=== PATIENT | female | born 1990 | race Caucasian/White ===

== ENCOUNTER 2019-07-21 07:36 | Inpatient (IN) ==
[2019-07-21] MEDS ORDERED: OXYTOCIN 30 UNITS/500 ML BAG IV PRN ×2 (07:56→07:59)
--- NOTE | 2019-07-21 08:21 | History & Physical Report ---
Date of Service July 21, 2019 Assessment & Plan (1) Encounter for induction of labor: 28 yo F here for induction of labor for post dates. Doing well today and without complaints. Had chirinos bulb overnight. - Broke water at ~8:50AM. - Pitocin up by 2 q30 minutes and will monitor for progress. - Pt's pain management plan includes epidural. (2) : History of Present Illness Primary Care Provider: NO PCP Duong is a 28 yo F PMHx anxiety on Celexa; dating parameters 41w0d by LMP; Induction planned today for post dates; no complications this . Attended OB appointments with [facility], admitted today under care of Dr. Moore. + intermittent contractions, + movement; no fluid loss or vaginal blood loss. Reports 5AM chirinos bulb fell out. Pain plan includes epidural. Labs (12/02/18, pending CBC this AM): Blood type: A+ Antibody screen: negative Hgb: 12.1 Hct: 35.3 WBC: 4.86 Plt: 186 Rubella status: immune VDLR/RPR: not detected Gonorrhea: negative Chlamydia: negative HIV: negative GBS: negative HbSAg: negative Glucose tolerance test x2: 90, 132 Allergies Allergy/AdvReac Type Severity Reaction Status Date / Time No Known Drug Allergies Allergy Verified 07/19/19 13:49 Home Medications Home Medications Medication Instructions Recorded Confirmed Type citalopram 20 mg tablet 20 mg PO DAILY tab 05/14/19 07/21/19 History PNV cmb#95-ferrous fumarate-FA 1 tab PO DAILY 07/20/19 07/21/19 History [] cholecalciferol (vitamin D3) 1,000 unit PO DAILY 07/20/19 07/21/19 History [Vitamin D3] Patient History Medical History Anxiety Currently taking Celexa. Managed by Dr. Renae Heart murmur "Was told once by a physician that she has a heart murmur." Migraines [place] teeth extracted Acne Surgical History History of oral surgery Family History Father Blood clot in vein Hypertension Polycythemia Dyslipidemia Motor vehicle accident Clotting disorder Drinking problem Grandmother (Paternal) Breast cancer Mother Thyroid disease Anemia Anxiety Family/Other Breast cancer Unknown Multiple gestation Other Colorectal cancer Social History Preferred Language: Jamaican Communication Ability: Effective Sales And Service Technician Required: No Beliefs That Will Affect Care: None marital status: Current Living Situation: Spouse current occupational status: employed current occupation: Dental hygienist Other Information That Helps Us Care for You: No Feels Safe at Home: Yes Safety Concerns: Feels Safe At This Time Smoking Status: Never smoker Do You Dip or Chew Tobacco: No ; Hx Alcohol Use: No Hx Substance Use: No OB History #1: current Review of Systems Constitutional: denies fever, chills, sweats, headache Respiratory: denies SOB, difficulty breathing Cardiac: denies CP, chest palpitations, chest pressure Breast: denies breast pain : denies dysuria Physical Exam Physical Exam: General: patient is alert and oriented, in NAD Cardiac: +S1/S2, no murmurs rubs or gallops Respiratory: lungs CTA b/l, anteriorly and posteriorly, no wheezes rales or rhonchi, no increased work of breathing, symmetric chest rise, no respiratory distress Abdomen: soft, NT, +bowel sounds Uterus: uterine fundus firm. Lower Extremities: no LE edema or swelling, no deep calf pain, Nayely's sign negative b/l Genitourinary: Manual OB Exam: + cervical dilation (3-4cm), + cervical effacement 50% and + station -2 OB Exam Monitor Tracing: + external FHT mon itor used, + external uterine monitor used, + category I and + normal FHT variability Results & Data Vital Signs (Past 12 Hours) Vital Signs Temp Pulse Resp BP 07/21/19 07:59 37.3 C 108 H 16 131/79 07/21/19 07:51 108 H 131/79 Laboratory Results Laboratory Results - last 24 hr 07/21/19 08:16 WBC Pending RBC Pending Hgb Pending Hct Pending MCV Pending MCH Pending MCHC Pending Plt Count Pending Medications Administered Current Medications Lactated Ringer's (Lr) 1,000 mls @ 125 mls/hr IV .Q8H PRN; Protocol PRN Reason: L&D Protocol Stop: 07/23/19 07:55 Oxytocin (Pitocin) 30 units in 500 mls @ 333.333 mls/hr IV .Q1H30M PRN; Protocol PRN Reason: Bleeding Control Stop: 08/20/19 07:55 Oxytocin (Pitocin) 30 units in 500 mls @ 1 mls/hr IV .Q24H PRN; Protocol PRN Reason: Labor Induction/Augmentation Stop: 07/23/19 07:58 Code Status & VTE Plan Code Status FULL CODE Monitoring External Monitor category I tracing and + normal FHT variability Supervising Physician Co-Signing Physician Notes Resident Physician Supervision Note: I was present with Dr. Hooper during the history and exam. I discussed the case with the resident and agree with the findings and plan as documented in the note. Any exceptions or clarifications are listed here: ready for induction, arom/pit, efw 7-8#, fhts categ 1, epidural when desires. on celexa. rh pos, gbs neg, rubella immune. Documented By: Christa Moore MD, FACOG Resident Activity Tracking Resident Involvement: Resident Care Provided Care Provided: [facility] Medicine (1) Weeks of gestation: 40 weeks Qualified Code(s): Z3A.40 - 40 weeks gestation of
[2019-07-21] MEDS: LACTATED RINGER'S 1,000 ML IV PRN ×4 (08:31→20:15)
[2019-07-21 09:05] LABS: Hematocrit (blood only) 38.1 % (37-47); Hemoglobin 12.9 g/dL (12.0-16.0); Mean Corpuscular Hemoglobin 32.5 pg (25-34); RDW Coefficient of Variation 13.2 % (11.5-14.5); RDW Standard Deviation 45.9 fL (36.4-46.3); Red Blood Count 3.97 M/uL (4.2-5.4); White Blood Count 10.71 K/uL (4.8-10.8)
[2019-07-21 09:06] LABS: Mean Corpuscular Hgb Conc 33.9 g/dL (32-36); Mean Platelet Volume 13.1 fL (7.4-10.4); Platelet Count 134 K/uL (130-400); Platelet Estimate Decreased (Normal)
[2019-07-21] MEDS ORDERED: BUPIVACAINE 0.25% 30 ML VIAL ONE ×2 (09:55→19:01)
[2019-07-21] MEDS ORDERED: ePHEDrine sulfate 50 MG/ML AMP ONE (09:56)
[2019-07-21] MEDS ORDERED: fentaNYL citrate 100 MCG/2 ML VIAL ONE (09:56)
[2019-07-21] MEDS ORDERED: fentaNYL 2MCG/ML ROPIV 1.25MG/ML 100 ML BAG EPI ONE (09:57)
[2019-07-21] MEDS ORDERED: NALBUPHINE HCL INJ 10 MG/ML AMP IV PRN (10:09)
[2019-07-21] MEDS ORDERED: ePHEDrine sulfate 50 MG/ML AMP IV PRN (10:09)
[2019-07-21] MEDS ORDERED: DiphenhydrAMINE HCL 50 MG/ML VIAL IV PRN (10:09)
[2019-07-21] MEDS ORDERED: NALOXONE HCL 1 MG in SODIUM CHLORIDE 0.9% 1000ML 1,000 ML IV PRN (10:09)
[2019-07-21] MEDS ORDERED: NALOXONE HCL 0.4 MG/1 ML VIAL/CARP IV PRN (10:09)
--- NOTE | 2019-07-21 10:12 | Anesthesiology Consultation ---
Date of Service July 21, 2019 Assessment & Plan (1) Encounter for pre-operative examination: Chart Review Chart Review: Patient NOT seen in Pre Admission Testing and Acceptable Risk for Labor Epidural Consults Requested none History Height/Weight Height: 5 ft 4 in Weight: 84.368 kg Allergies Allergy/AdvReac Type Severity Reaction Status Date / Time No Known Drug Allergies Allergy Verified 07/19/19 13:49 Medications Home Medications Medication Instructions Recorded Confirmed Last Taken citalopram 20 mg tablet 20 mg PO DAILY tab 05/14/19 07/20/19 07/19/19 13:00 PNV cmb#95-ferrous fumarate-FA 1 tab PO DAILY 07/20/19 07/20/19 07/19/19 13:00 [] cholecalciferol (vitamin D3) 1,000 unit PO DAILY 07/20/19 07/20/19 07/19/19 13:00 [Vitamin D3] Active Medications Generic Name Dose Route Start Last Admin Trade Name Freq PRN Reason Stop Dose Admin Lactated Ringer's 1,000 mls @ 125 mls/hr 07/21/19 07:56 07/21/19 08:31 Lr IV 07/23/19 07:55 125 mls/hr .Q8H PRN Administration L&D Protocol Protocol Oxytocin 30 units in 500 mls @ 5 mls/hr 07/21/19 07:59 07/21/19 09:35 Pitocin IV 07/23/19 07:58 0.3 units/hr .Q24H PRN 5 mls/hr Labor Induction/Augmentation Titration Protocol 0.3 UNITS/HR Past Medical History Medical History Anxiety Currently taking Celexa. Managed by Dr. Renae Heart murmur "Was told once by a physician that she has a heart murmur." Migraines [place] teeth extracted Acne Exercise / Class Metabolic Activity II 4-5 Yardwork/Stairs/Walk up hill Past Family History Family History Father Blood clot in vein Hypertension Polycythemia Dyslipidemia Motor vehicle accident Clotting disorder Drinking problem Grandmother (Paternal) Breast cancer Mother Thyroid disease Anemia Anxiety Family/Other Breast cancer Unknown Multiple gestation Other Colorectal cancer Past Surgical History Surgical History History of oral surgery Past Anesthesia History No Hx of Anesthesia Complications and No Family Hx of Anesthesia Complications History of PONV No Hx of PONV and No Hx of Motion Sickness Social History Smoking Status: Never smoker Do You Dip or Chew Tobacco: No Hx Alcohol Use: No Hx Substance Use: No Physical Exam Vital Signs Last Vital Signs Temp 37.2 C 07/21/19 09:19 Pulse 115 H 07/21/19 10:08 Resp 18 07/21/19 09:19 BP 138/87 07/21/19 10:07 Pulse Ox 97 07/21/19 10:08 Testing Laboratory Results 07/21/19 08:16
[2019-07-21] MEDS ORDERED: INFLUENZA VIRUS QUAD VACCINE 0.5 ML SYR IM ONE (12:45)
[2019-07-21] MEDS ORDERED: INFLUENZA ADMINISTRATION CHARGE ONE (12:45)
--- NOTE | 2019-07-21 14:56 | Labor Progress Brief Note ---
Date of Service July 21, 2019 Subjective Reason For Note: Routine Evaluation called by nurse that with pit at 13 thinks pt has had 2 hrs of 3 per 10min ctx. pt comfortable. TOCO has been difficult to use for nurse. Assessment & Plan (1) Encounter for induction of labor: (2) Prolonged , antepartum: some cx change. iupc placed due to nursing having trouble with evaluation of pattern with toco. will keep mvu's >200. fhts categ 1 Physical Exam Constitutional: WD/WN, vitals as above Genitourinary: OB Exam Abdomen: + estimated weight (7-8#) Manual OB Exam: + cervical dilation (3-4cm), + cervical effacement 80% and + station -2 OB Exam Monitor Tracing: + external FHT monitor used (135 mod variabilty, reactive), + external uterine monitor used (q1-3 pit at 13), + category I and + normal FHT variability Results & Data Vital Signs (Past 12 Hours) Vital Signs Temp Pulse Resp BP Pulse Ox 07/21/19 14:48 77 96 07/21/19 14:43 84 97 07/21/19 14:39 82 116/60 07/21/19 14:38 87 97 07/21/19 14:33 82 96 07/21/19 14:28 79 97 07/21/19 14:23 84 109/66 97 07/21/19 14:18 84 97 07/21/19 14:13 79 97 07/21/19 14:08 76 105/63 96 07/21/19 14:03 77 97 07/21/19 14:01 99.0 F 20 07/21/19 13:58 82 97 07/21/19 13:53 80 116/59 L 96 07/21/19 13:48 74 97 07/21/19 13:43 79 97 07/21/19 13:38 80 123/57 L 95 07/21/19 13:33 83 95 07/21/19 13:28 89 97 07/21/19 13:25 87 120/77 07/21/19 13:23 98 H 97 07/21/19 13:18 90 97 07/21/19 13:13 86 96 07/21/19 13:08 80 118/72 96 07/21/19 13:03 92 H 97 07/21/19 12:58 86 97 07/21/19 12:53 83 125/74 98 07/21/19 12:48 88 98 07/21/19 12:43 82 96 07/21/19 12:40 83 20 115/65 07/21/19 12:38 82 97 07/21/19 12:33 85 97 07/21/19 12:28 90 97 07/21/19 12:24 89 93/54 L 07/21/19 12:23 88 97 07/21/19 12:18 88 97 07/21/19 12:13 91 H 95 07/21/19 12:08 82 113/59 L 95 07/21/19 12:03 90 96 07/21/19 12:00 98.2 F 18 07/21/19 11:58 81 98 07/21/19 11:54 82 129/74 07/21/19 11:53 85 97 07/21/19 11:48 94 H 97 07/21/19 11:43 90 96 07/21/19 11:38 105 H 20 113/70 97 07/21/19 11:33 100 H 96 07/21/19 11:28 88 96 07/21/19 11:23 99 H 112/63 98 07/21/19 11:18 86 96 07/21/19 11:15 114 H 18 129/60 07/21/19 11:13 108 H 98 07/21/19 11:10 121 H 98/61 L 07/21/19 11:08 102 H 98 07/21/19 11:05 96 H 103/72 07/21/19 11:03 96 H 94 07/21/19 10:58 109 H 93 07/21/19 10:56 87 20 109/68 07/21/19 10:53 112 H 93 07/21/19 10:49 99 H 117/64 07/21/19 10:48 101 H 90 07/21/19 10:47 102 H 107/58 L 07/21/19 10:45 118 H 20 146/60 H 07/21/19 10:43 96 H 93 07/21/19 10:42 93 H 107/60 07/21/19 10:40 98.2 F 105 H 22 115/63 07/21/19 10:38 88 118/64 94 07/21/19 10:36 96 H 22 110/64 07/21/19 10:34 95 H 20 109/60 07/21/19 10:33 101 H 94 07/21/19 10:32 92 H 20 113/61 07/21/19 10:30 95 H 120/58 L 07/21/19 10:29 96 H 171/78 H 07/21/19 10:28 95 H 93 07/21/19 10:25 102 H 20 131/78 94 07/21/19 10:23 98 H 95 07/21/19 10:18 110 H 96 07/21/19 10:13 95 H 96 07/21/19 10:08 115 H 97 07/21/19 10:07 102 H 20 138/87 07/21/19 09:19 99.0 F 88 18 135/83 07/21/19 08:46 90 130/81 07/21/19 07:59 99.1 F 108 H 16 131/79 07/21/19 07:51 108 H 131/79
[2019-07-21] MEDS: fentaNYL 2MCG/ML ROPIV 1.25MG/ML 100 ML BAG EPI PRN ×2 (16:20→20:51)
--- NOTE | 2019-07-21 17:52 | Labor Progress Brief Note ---
Date of Service July 21, 2019 Subjective Reason For Note: Routine Evaluation comfortable, pit at 19, mvus not consistently >200. Assessment & Plan (1) Prolonged , antepartum: (2) Encounter for induction of labor: good cx change. c/w pit. max increased, titrate to keep mvu's >200. will try position change and can consider amnioinfusion if variables persist remote from delivery Physical Exam Constitutional: WD/WN, vitals as above Genitourinary: Manual OB Exam: + cervical dilation 5 cm, + cervical effacement 90% and + station -2 OB Exam Monitor Tracing: + external FHT monitor used (135 mod variabilty +scalp stim ), + category II, + normal FHT variability and + variable decelerations (occas) Results & Data Vital Signs (Past 12 Hours) Vital Signs Temp Pulse Resp BP Pulse Ox 07/21/19 17:43 101 H 97 07/21/19 17:38 91 H 131/81 97 07/21/19 17:33 93 H 98 07/21/19 17:28 112 H 97 07/21/19 17:23 102 H 111/62 97 07/21/19 17:18 95 H 97 07/21/19 17:13 96 H 96 07/21/19 17:09 100 H 117/64 07/21/19 17:08 90 97 07/21/19 17:03 87 97 07/21/19 17:00 98.2 F 20 07/21/19 16:58 100 H 96 07/21/19 16:53 98 H 105/56 L 95 07/21/19 16:48 96 H 97 07/21/19 16:43 106 H 97 07/21/19 16:39 98 H 125/79 07/21/19 16:38 92 H 97 07/21/19 16:33 104 H 18 97 07/21/19 16:28 91 H 97 07/21/19 16:24 91 H 143/68 H 07/21/19 16:23 94 H 96 07/21/19 16:18 92 H 96 07/21/19 16:13 96 H 97 07/21/19 16:08 94 H 115/73 96 07/21/19 16:03 92 H 96 07/21/19 16:01 92 H 20 128/67 07/21/19 15:58 97 H 95 07/21/19 15:53 90 96 07/21/19 15:48 89 97 07/21/19 15:43 96 H 97 07/21/19 15:38 80 114/68 97 07/21/19 15:33 78 98 07/21/19 15:28 92 H 97 07/21/19 15:23 95 H 20 109/57 L 96 07/21/19 15:18 85 98 07/21/19 15:13 76 96 07/21/19 15:08 98.2 F 81 20 111/59 L 96 07/21/19 15:03 96 H 95 07/21/19 14:58 92 H 96 07/21/19 14:54 77 111/57 L 07/21/19 14:53 86 95 07/21/19 14:48 77 96 07/21/19 14:43 84 97 07/21/19 14:39 82 116/60 07/21/19 14:38 87 97 07/21/19 14:33 82 20 96 07/21/19 14:28 79 97 07/21/19 14:23 84 109/66 97 07/21/19 14:18 84 97 07/21/19 14:13 79 97 07/21/19 14:08 76 105/63 96 07/21/19 14:03 77 97 07/21/19 14:01 99.0 F 20 07/21/19 13:58 82 97 07/21/19 13:53 80 116/59 L 96 07/21/19 13:48 74 97 07/21/19 13:43 79 97 07/21/19 13:38 80 123/57 L 95 07/21/19 13:33 83 95 07/21/19 13:28 89 97 07/21/19 13:25 87 120/77 07/21/19 13:23 98 H 97 07/21/19 13:18 90 97 07/21/19 13:15 20 07/21/19 13:13 86 96 07/21/19 13:08 80 118/72 96 07/21/19 13:03 92 H 97 07/21/19 12:58 86 97 07/21/19 12:53 83 125/74 98 07/21/19 12:48 88 98 07/21/19 12:43 82 96 07/21/19 12:40 83 20 115/65 07/21/19 12:38 82 97 07/21/19 12:33 85 97 07/21/19 12:28 90 97 07/21/19 12:24 89 93/54 L 07/21/19 12:23 88 97 07/21/19 12:18 88 97 07/21/19 12:13 91 H 95 07/21/19 12:08 82 113/59 L 95 07/21/19 12:03 90 96 07/21/19 12:00 98.2 F 18 07/21/19 11:58 81 98 07/21/19 11:54 82 129/74 07/21/19 11:53 85 97 07/21/19 11:48 94 H 97 07/21/19 11:43 90 96 07/21/19 11:38 105 H 20 113/70 97 07/21/19 11:33 100 H 96 07/21/19 11:28 88 96 07/21/19 11:23 99 H 112/63 98 07/21/19 11:18 86 96 07/21/19 11:15 114 H 18 129/60 07/21/19 11:13 108 H 98 07/21/19 11:10 121 H 98/61 L 07/21/19 11:08 102 H 98 07/21/19 11:05 96 H 103/72 07/21/19 11:03 96 H 94 07/21/19 10:58 109 H 93 07/21/19 10:56 87 20 109/68 07/21/19 10:53 112 H 93 07/21/19 10:49 99 H 117/64 07/21/19 10:48 101 H 90 07/21/19 10:47 102 H 107/58 L 07/21/19 10:45 118 H 20 146/60 H 07/21/19 10:43 96 H 93 07/21/19 10:42 93 H 107/60 07/21/19 10:40 98.2 F 105 H 22 115/63 07/21/19 10:38 88 118/64 94 07/21/19 10:36 96 H 22 110/64 07/21/19 10:34 95 H 20 109/60 07/21/19 10:33 101 H 94 07/21/19 10:32 92 H 20 113/61 10/02/19 10:30 95 H 120/58 L 07/21/19 10:29 96 H 171/78 H 07/21/19 10:28 95 H 93 07/21/19 10:25 102 H 20 131/78 94 07/21/19 10:23 98 H 95 07/21/19 10:18 110 H 96 07/21/19 10:13 95 H 96 07/21/19 10:08 115 H 97 07/21/19 10:07 102 H 20 138/87 07/21/19 09:19 99.0 F 88 18 135/83 07/21/19 08:46 90 130/81 07/21/19 07:59 99.1 F 108 H 16 131/79 07/21/19 07:51 108 H 131/79
[2019-07-21] MEDS ORDERED: Nursing to Pharmacy Communication ONE (18:22)
[2019-07-21] MEDS ORDERED: OR MISCELLANEOUS MED XX ONE (19:57)
[2019-07-22] MEDS: fentaNYL 2MCG/ML ROPIV 1.25MG/ML 100 ML BAG EPI PRN ×2 (01:29→09:16)
--- NOTE | 2019-07-22 02:41 | Labor Progress Brief Note ---
Date of Service July 22, 2019 Subjective Late entry due to attending to another patient, seen at 153am feeling pain with ctx. Assessment & Plan (1) Prolonged , antepartum: (2) Encounter for induction of labor: good cx change. will have anesthesia help pt with pain control. hold amnioinfusion for now. Physical Exam Constitutional: WD/WN, vitals as above Genitourinary: Manual OB Exam: + cervical dilation 9 cm, + cervical effacement 100%, + station 0 and + amniotic fluid (fluid c/w amnioinfusion released with exam, amnioinfusion stopped for now) clear OB Exam Monitor Tracing: + external FHT monitor used (150 mod variability, spont accels), + intra-uterine pressure catheter used (q2-3), + category I and + normal FHT variability Results & Data Vital Signs (Past 12 Hours) Vital Signs Temp Pulse Resp BP Pulse Ox 07/22/19 02:33 127 H 98 07/22/19 02:31 133 H 95/51 L 07/22/19 02:28 124 H 97 07/22/19 02:23 128 H 98 07/22/19 02:22 103 H 123/59 L 07/22/19 02:20 78 113/69 07/22/19 02:18 112 H 126/74 97 07/22/19 02:16 98 H 117/61 07/22/19 02:14 103 H 124/57 L 07/22/19 02:13 107 H 97 07/22/19 02:12 96 H 125/59 L 07/22/19 02:10 99 H 18 121/57 L 07/22/19 02:08 102 H 123/66 97 07/22/19 02:06 96 H 124/61 07/22/19 02:04 102 H 135/60 07/22/19 02:03 99 H 98 07/22/19 01:58 110 H 131/74 96 07/22/19 01:53 103 H 96 07/22/19 01:48 111 H 96 07/22/19 01:44 105 H 136/60 07/22/19 01:43 105 H 95 07/22/19 01:38 102 H 98 07/22/19 01:33 112 H 98 07/22/19 01:29 106 H 116/58 L 07/22/19 01:28 103 H 96 07/22/19 01:23 123 H 98 07/22/19 01:18 101 H 95 07/22/19 01:14 120 H 114/59 L 07/22/19 01:13 104 H 97 07/22/19 01:08 99 H 96 07/22/19 01:03 105 H 96 07/22/19 00:58 104 H 97 07/22/19 00:57 99.3 F 103 H 18 121/67 07/22/19 00:53 103 H 97 07/22/19 00:48 103 H 98 07/22/19 00:44 101 H 117/58 L 07/22/19 00:43 104 H 97 07/22/19 00:38 109 H 98 07/22/19 00:33 102 H 100 07/22/19 00:28 103 H 97 07/22/19 00:27 89 117/68 07/22/19 00:23 102 H 98 07/22/19 00:18 96 H 100 07/22/19 00:15 100 H 122/70 07/22/19 00:13 98 H 99 07/22/19 00:08 98 H 98 07/22/19 00:03 99 H 98 07/21/19 23:58 91 H 127/65 98 07/21/19 23:53 96 H 99 07/21/19 23:48 94 H 99 07/21/19 23:43 97 H 119/72 99 07/21/19 23:38 95 H 98 07/21/19 23:33 88 99 07/21/19 23:30 112 H 106/71 07/21/19 23:28 99 H 100 07/21/19 23:27 18 07/21/19 23:23 91 H 99 07/21/19 23:18 90 98 07/21/19 23:13 88 99 07/21/19 23:08 99 H 99 07/21/19 23:06 93 H 109/59 L 07/21/19 23:03 87 99 07/21/19 23:01 87 106/55 L 07/21/19 22:58 91 H 99 07/21/19 22:56 90 113/56 L 07/21/19 22:53 87 99 07/21/19 22:51 99.3 F 90 18 113/59 L 07/21/19 22:48 86 99 07/21/19 22:47 85 112/59 L 07/21/19 22:43 108 H 99 07/21/19 22:41 98 H 101/55 L 07/21/19 22:40 105 H 93/53 L 07/21/19 22:38 97 H 99 07/21/19 22:37 100 H 109/55 L 07/21/19 22:35 88 125/61 07/21/19 22:33 109 H 126/81 98 07/21/19 22:29 87 151/67 H 07/21/19 22:28 91 H 98 07/21/19 22:27 88 131/60 07/21/19 22:25 83 127/68 07/21/19 22:23 83 125/66 98 07/21/19 22:21 86 128/63 07/21/19 22:18 106 H 100 07/21/19 22:16 86 123/63 07/21/19 22:13 92 H 100 07/21/19 22:08 98 H 96 07/21/19 22:03 93 H 98 07/21/19 22:02 85 120/62 07/21/19 21:59 18 07/21/19 21:58 97 H 97 07/21/19 21:53 105 H 97 07/21/19 21:48 107 H 98 07/21/19 21:46 90 118/69 07/21/19 21:43 94 H 97 07/21/19 21:38 95 H 97 07/21/19 21:33 103 H 98 07/21/19 21:31 97 H 118/70 07/21/19 21:30 16 07/21/19 21:28 100 H 98 07/21/19 21:23 108 H 100 07/21/19 21:18 97 H 98 07/21/19 21:16 95 H 118/79 07/21/19 21:13 97 H 98 07/21/19 21:08 91 H 98 07/21/19 21:03 101 H 130/64 98 07/21/19 21:02 107 H 88 L 07/21/19 20:58 96 H 97 07/21/19 20:53 101 H 97 07/21/19 20:50 99.5 F 18 07/21/19 20:48 95 H 120/74 98 07/21/19 20:43 99 H 98 07/21/19 20:38 106 H 97 07/21/19 20:33 100 H 96 07/21/19 20:32 105 H 117/78 07/21/19 20:28 105 H 97 07/21/19 20:23 99 H 98 07/21/19 20:18 105 H 97 07/21/19 20:13 114 H 97 07/21/19 20:11 110 H 126/70 07/21/19 20:08 109 H 96 07/21/19 20:07 110 H 124/82 07/21/19 20:03 109 H 97 07/21/19 20:01 108 H 121/74 07/21/19 19:58 103 H 97 07/21/19 19:57 110 H 125/73 07/21/19 19:53 105 H 95 07/21/19 19:52 97 H 116/66 07/21/19 19:48 87 97 07/21/19 19:46 88 130/57 L 07/21/19 19:43 89 97 07/21/19 19:41 86 107/58 L 07/21/19 19:38 81 97 07/21/19 19:36 93 H 98/55 L 07/21/19 19:33 85 96 07/21/19 19:30 90 18 106/62 07/21/19 19:28 88 104/60 97 07/21/19 19:26 80 103/58 L 07/21/19 19:23 89 96 07/21/19 19:18 86 96 07/21/19 19:13 98.1 F 90 18 97 07/21/19 19:08 96 H 130/71 97 07/21/19 19:03 90 98 07/21/19 18:58 101 H 96 07/21/19 18:54 85 126/64 07/21/19 18:53 87 97 07/21/19 18:48 88 97 07/21/19 18:43 86 97 07/21/19 18:38 91 H 111/66 97 07/21/19 18:33 91 H 97 07/21/19 18:28 88 97 07/21/19 18:23 88 114/67 96 07/21/19 18:18 79 97 07/21/19 18:13 86 97 07/21/19 18:09 85 111/59 L 07/21/19 18:08 87 97 07/21/19 18:03 89 97 07/21/19 17:58 88 96 07/21/19 17:54 91 H 112/72 07/21/19 17:53 91 H 96 07/21/19 17:48 85 97 07/21/19 17:43 101 H 97 07/21/19 17:38 91 H 131/81 97 07/21/19 17:33 93 H 98 07/21/19 17:28 112 H 97 07/21/19 17:23 102 H 111/62 97 07/21/19 17:18 95 H 97 07/21/19 17:13 96 H 96 07/21/19 17:09 100 H 117/64 07/21/19 17:08 90 97 07/21/19 17:03 87 97 07/21/19 17:00 98.2 F 20 07/21/19 16:58 100 H 96 07/21/19 16:53 98 H 105/56 L 95 07/21/19 16:48 96 H 97 07/21/19 16:43 106 H 97 07/21/19 16:39 98 H 125/79 07/21/19 16:38 92 H 97 07/21/19 16:33 104 H 18 97 07/21/19 16:28 91 H 97 07/21/19 16:24 91 H 143/68 H 07/21/19 16:23 94 H 96 07/21/19 16:18 92 H 96 07/21/19 16:13 96 H 97 07/21/19 16:08 94 H 115/73 96 07/21/19 16:03 92 H 96 07/21/19 16:01 92 H 20 128/67 07/21/19 15:58 97 H 95 07/21/19 15:53 90 96 07/21/19 15:48 89 97 07/21/19 15:43 96 H 97 07/21/19 15:38 80 114/68 97 07/21/19 15:33 78 98 07/21/19 15:28 92 H 97 07/21/19 15:23 95 H 20 109/57 L 96 07/21/19 15:18 85 98 07/21/19 15:13 76 96 07/21/19 15:08 98.2 F 81 20 111/59 L 96 07/21/19 15:03 96 H 95 07/21/19 14:58 92 H 96 07/21/19 14:54 77 111/57 L 07/21/19 14:53 86 95 07/21/19 14:48 77 96 07/21/19 14:43 84 97 07/21/19 14:39 82 116/60 07/21/19 14:38 87 97
[2019-07-22] MEDS: LACTATED RINGER'S 1,000 ML IV PRN ×2 (03:34→06:22)
[2019-07-22] MEDS ORDERED: ACETAMINOPHEN 325 MG TAB PO STA (03:39)
[2019-07-22] MEDS ORDERED: GENTAMICIN SULFATE 40 MG/ML 20 ML VIAL IV STA (03:39)
[2019-07-22] MEDS ORDERED: GENTAMICIN CONSULT ACTIVE PRN ×3 (03:39→15:29)
[2019-07-22] MEDS ORDERED: AMPICILLIN 2,000 MG in SODIUM CHLOR 0.9% AD-VAN 100 ML IV ONE (04:00)
[2019-07-22] MEDS ORDERED: GENTAMICIN SULFATE 120 MG in DEXTROSE 5% 100 ML IV ONE ×2 (04:00→12:00)
--- NOTE | 2019-07-22 05:14 | Labor Progress Brief Note ---
Date of Service July 22, 2019 Subjective having lower pubic pain Assessment & Plan (1) Prolonged , antepartum: (2) Encounter for induction of labor: cannot reduce lip. fhts reassuring overall. will need to try to get comfortable as needs to dilate. Physical Exam Constitutional: WD/WN, vitals as above Genitourinary: Manual OB Exam: + cervical dilation (lip), + cervical effacement 100% and + station + 1 OB Exam Monitor Tracing: + external FHT monitor used (150 mod variability, early decels), + intra-uterine pressure catheter used (q 2 min, but mvu's not well calculated due to pushed out), + category II, + normal FHT variability and + variable decelerations attempted to reduce lip x 2, efforts good but did not reduce. Results & Data Vital Signs (Past 12 Hours) Vital Signs Temp Pulse Resp BP Pulse Ox 07/22/19 05:09 96 H 88 L 07/22/19 05:04 107 H 86 L 07/22/19 05:03 107 H 89 L 07/22/19 04:58 106 H 100 07/22/19 04:54 96 H 131/61 07/22/19 04:53 97 H 97 07/22/19 04:52 101 H 87 L 07/22/19 04:48 106 H 97 07/22/19 04:43 125 H 76 L 07/22/19 04:39 99 H 153/81 H 07/22/19 04:38 100 H 98 07/22/19 04:33 105 H 96 07/22/19 04:31 99.1 F 18 07/22/19 04:28 107 H 96 07/22/19 04:23 104 H 136/66 96 07/22/19 04:22 111 H 86 L 07/22/19 04:18 114 H 93 07/22/19 04:15 106 H 88 L 07/22/19 04:13 111 H 96 07/22/19 04:08 102 H 136/77 97 07/22/19 04:03 113 H 97 07/22/19 03:58 114 H 97 07/22/19 03:55 112 H 143/68 H 07/22/19 03:53 112 H 97 07/22/19 03:48 109 H 97 07/22/19 03:43 107 H 97 07/22/19 03:38 99 H 97 07/22/19 03:37 117 H 110/58 L 07/22/19 03:33 131 H 98 07/22/19 03:32 116 H 111/63 07/22/19 03:31 100.0 F H 18 07/22/19 03:30 113 H 18 105/57 L 07/22/19 03:28 109 H 106/57 L 97 07/22/19 03:26 107 H 114/62 07/22/19 03:24 108 H 115/65 07/22/19 03:23 102 H 96 07/22/19 03:22 100 H 112/63 07/22/19 03:20 111 H 109/65 07/22/19 03:18 106 H 113/67 97 07/22/19 03:16 115 H 106/67 07/22/19 03:14 111 H 104/56 L 07/22/19 03:13 103 H 98 07/22/19 03:12 106 H 99/56 L 07/22/19 03:10 101 H 102/59 L 07/22/19 03:08 105 H 101/58 L 97 07/22/19 03:06 103 H 102/59 L 07/22/19 03:04 106 H 104/58 L 07/22/19 03:03 105 H 99 07/22/19 03:02 114 H 99/57 L 07/22/19 03:00 107 H 16 104/55 L 07/22/19 02:58 107 H 107/58 L 99 07/22/19 02:56 108 H 105/58 L 07/22/19 02:54 127 H 98/56 L 07/22/19 02:53 114 H 97 07/22/19 02:52 117 H 100/55 L 07/22/19 02:50 101 H 103/55 L 07/22/19 02:48 111 H 99/56 L 99 07/22/19 02:46 110 H 100/54 L 07/22/19 02:44 114 H 104/56 L 07/22/19 02:43 113 H 99 07/22/19 02:41 112 H 107/55 L 07/22/19 02:38 122 H 100 07/22/19 02:37 144 H 79/48 L 07/22/19 02:33 127 H 98 07/22/19 02:31 100.0 F H 133 H 18 95/51 L 07/22/19 02:28 124 H 97 07/22/19 02:23 128 H 98 07/22/19 02:22 103 H 123/59 L 07/22/19 02:20 78 113/69 07/22/19 02:18 112 H 126/74 97 07/22/19 02:16 98 H 117/61 07/22/19 02:14 103 H 124/57 L 07/22/19 02:13 107 H 97 07/22/19 02:12 96 H 125/59 L 07/22/19 02:10 99 H 18 121/57 L 07/22/19 02:08 102 H 123/66 97 07/22/19 02:06 96 H 124/61 07/22/19 02:04 102 H 135/60 07/22/19 02:03 99 H 98 07/22/19 01:58 110 H 131/74 96 07/22/19 01:53 103 H 96 07/22/19 01:48 111 H 96 07/22/19 01:44 105 H 136/60 07/22/19 01:43 105 H 95 07/22/19 01:38 102 H 98 07/22/19 01:33 112 H 98 07/22/19 01:29 106 H 116/58 L 07/22/19 01:28 103 H 96 07/22/19 01:23 123 H 98 07/22/19 01:18 101 H 95 07/22/19 01:14 120 H 114/59 L 07/22/19 01:13 104 H 97 07/22/19 01:08 99 H 96 07/22/19 01:03 105 H 96 07/22/19 00:58 104 H 97 07/22/19 00:57 99.3 F 103 H 18 121/67 07/22/19 00:53 103 H 97 07/22/19 00:48 103 H 98 07/22/19 00:44 101 H 117/58 L 07/22/19 00:43 104 H 97 07/22/19 00:38 109 H 98 07/22/19 00:33 102 H 100 07/22/19 00:28 103 H 97 07/22/19 00:27 89 117/68 07/22/19 00:23 102 H 98 07/22/19 00:18 96 H 100 07/22/19 00:15 100 H 122/70 07/22/19 00:13 98 H 99 07/22/19 00:08 98 H 98 07/22/19 00:03 99 H 98 07/21/19 23:58 91 H 127/65 98 07/21/19 23:53 96 H 99 07/21/19 23:48 94 H 99 07/21/19 23:43 97 H 119/72 99 07/21/19 23:38 95 H 98 07/21/19 23:33 88 99 07/21/19 23:30 112 H 106/71 07/21/19 23:28 99 H 100 07/21/19 23:27 18 07/21/19 23:23 91 H 99 07/21/19 23:18 90 98 07/21/19 23:13 88 99 07/21/19 23:08 99 H 99 07/21/19 23:06 93 H 109/59 L 07/21/19 23:03 87 99 07/21/19 23:01 87 106/55 L 07/21/19 22:58 91 H 99 07/21/19 22:56 90 113/56 L 07/21/19 22:53 87 99 07/21/19 22:51 99.3 F 90 18 113/59 L 07/21/19 22:48 86 99 07/21/19 22:47 85 112/59 L 07/21/19 22:43 108 H 99 07/21/19 22:41 98 H 101/55 L 07/21/19 22:40 105 H 93/53 L 07/21/19 22:38 97 H 99 07/21/19 22:37 100 H 109/55 L 07/21/19 22:35 88 125/61 07/21/19 22:33 109 H 126/81 98 07/21/19 22:29 87 151/67 H 07/21/19 22:28 91 H 98 07/21/19 22:27 88 131/60 07/21/19 22:25 83 127/68 07/21/19 22:23 83 125/66 98 07/21/19 22:21 86 128/63 07/21/19 22:18 106 H 100 07/21/19 22:16 86 123/63 07/21/19 22:13 92 H 100 07/21/19 22:08 98 H 96 07/21/19 22:03 93 H 98 07/21/19 22:02 85 120/62 07/21/19 21:59 18 07/21/19 21:58 97 H 97 07/21/19 21:53 105 H 97 07/21/19 21:48 107 H 98 07/21/19 21:46 90 118/69 07/21/19 21:43 94 H 97 07/21/19 21:38 95 H 97 07/21/19 21:33 103 H 98 07/21/19 21:31 97 H 118/70 07/21/19 21:30 16 07/21/19 21:28 100 H 98 07/21/19 21:23 108 H 100 07/21/19 21:18 97 H 98 07/21/19 21:16 95 H 118/79 07/21/19 21:13 97 H 98 07/21/19 21:08 91 H 98 07/21/19 21:03 101 H 130/64 98 07/21/19 21:02 107 H 88 L 07/21/19 20:58 96 H 97 07/21/19 20:53 101 H 97 07/21/19 20:50 99.5 F 18 07/21/19 20:48 95 H 120/74 98 07/21/19 20:43 99 H 98 07/21/19 20:38 106 H 97 07/21/19 20:33 100 H 96 07/21/19 20:32 105 H 117/78 07/21/19 20:28 105 H 97 07/21/19 20:23 99 H 98 07/21/19 20:18 105 H 97 07/21/19 20:13 114 H 97 07/21/19 20:11 110 H 126/70 07/21/19 20:08 109 H 96 07/21/19 20:07 110 H 124/82 07/21/19 20:03 109 H 97 07/21/19 20:01 108 H 121/74 07/21/19 19:58 103 H 97 07/21/19 19:57 110 H 125/73 07/21/19 19:53 105 H 95 07/21/19 19:52 97 H 116/66 07/21/19 19:48 87 97 07/21/19 19:46 88 130/57 L 07/21/19 19:43 89 97 07/21/19 19:41 86 107/58 L 07/21/19 19:38 81 97 07/21/19 19:36 93 H 98/55 L 07/21/19 19:33 85 96 07/21/19 19:30 90 18 106/62 07/21/19 19:28 88 104/60 97 07/21/19 19:26 80 103/58 L 07/21/19 19:23 89 96 07/21/19 19:18 86 96 07/21/19 19:13 98.1 F 90 18 97 07/21/19 19:08 96 H 130/71 97 07/21/19 19:03 90 98 07/21/19 18:58 101 H 96 07/21/19 18:54 85 126/64 07/21/19 18:53 87 97 07/21/19 18:48 88 97 07/21/19 18:43 86 97 07/21/19 18:38 91 H 111/66 97 07/21/19 18:33 91 H 97 07/21/19 18:28 88 97 07/21/19 18:23 88 114/67 96 07/21/19 18:18 79 97 07/21/19 18:13 86 97 07/21/19 18:09 85 111/59 L 07/21/19 18:08 87 97 07/21/19 18:03 89 97 07/21/19 17:58 88 96 07/21/19 17:54 91 H 112/72 07/21/19 17:53 91 H 96 07/21/19 17:48 85 97 07/21/19 17:43 101 H 97 07/21/19 17:38 91 H 131/81 97 07/21/19 17:33 93 H 98 07/21/19 17:28 112 H 97 07/21/19 17:23 102 H 111/62 97 07/21/19 17:18 95 H 97 07/21/19 17:13 96 H 96
--- NOTE | 2019-07-22 05:35 | Anesthesiology Progress Note ---
Date of Service July 22, 2019 Assessment & Plan (1) Encounter for pre-operative examination: patient had epidural easily placed. excellent pain control. called several times throughout the day and night for significant pain. catheter in good position each time she was evaluated. pain bilateral front lower abdomen. first two boluses she was given a total of 8ml 0.25% bupivicaine with excellent results. the third bolus pt was at [address] larry ok with patient being very numb to allow her to labor down somwas given 8ml 2% lidocain with excellent response. called again at 5:15 as pt an anterior lip and again very painful. 10ml 2% lidocaine again given. good pain relief. patient on monitor each time. blood pressures remained stable. doses given in divided doses. no complications. Subjective having lower pubic pain Physical Exam Vital Signs: Last Vital Signs Temp 37.3 C 07/22/19 04:31 Pulse 92 H 07/22/19 05:29 Resp 18 07/22/19 04:31 BP 134/61 07/22/19 05:28 Pulse Ox 100 07/22/19 05:29 Constitutional: + obese ENMT: Mouth: + TMJ clicking; no TMJ abnormality and no dentition abnormality Thyromental Distance: > or= 3.5 Finger Breadths Mallampati Class: I Neck: normal visual inspection Respiratory: normal respiratory effort Auscultation: lungs clear to auscultation bilaterally Cardiovascular: Rate/Rhythm: regular rate and regular rhythm Heart Sounds: no murmur Musculoskeletal: Spine: normal cervical ROM and no pain with cervical ROM Neurologic: moves all extremities Psychiatric: Orientation: alert and oriented x 3 Results & Data Medications Administered Lactated Ringer's (Lr) 1,000 mls @ 125 mls/hr IV .Q8H PRN; Protocol PRN Reason: L&D Protocol Stop: 07/23/19 07:55 Last Admin: 07/22/19 03:34 Dose: 999 mls/hr Documented by: [id number] Infusion: 07/22/19 03:34 Dose: 999 mls/hr Documented by: [id number] Infusion: 07/22/19 03:30 Dose: 999 mls/hr Documented by: [id number] Admin: 07/21/19 20:15 Dose: 125 mls/hr Documented by: [id number] Infusion: 07/21/19 20:09 Dose: 999 mls/hr Documented by: [id number] Infusion: 07/21/19 19:55 Dose: 999 mls/hr Documented by: [id number] Infusion: 07/21/19 19:30 Dose: 125 mls/hr Documented by: [id number] Infusion: 07/21/19 19:14 Dose: 125 mls/hr Documented by: [id number] Infusion: 07/21/19 18:53 Dose: 125 mls/hr Documented by: [id number] Infusion: 07/21/19 18:18 Dose: 999 mls/hr Documented by: [id number] Admin: 07/21/19 17:51 Dose: 125 mls/hr Documented by: [id number] Infusion: 07/21/19 17:51 Dose: 125 mls/hr Documented by: [id number] Admin: 07/21/19 11:23 Dose: 125 mls/hr Documented by: [id number] Infusion: 07/21/19 10:44 Dose: 999 mls/hr Documented by: [id number] Infusion: 07/21/19 09:54 Dose: 999 mls/hr Documented by: [id number] Admin: 07/21/19 08:31 Dose: 125 mls/hr Documented by: [id number] Oxytocin (Pitocin) 30 units in 500 mls @ 23 mls/hr IV .[id number] PRN; Protocol PRN Reason: Labor Induction/Augmentation Stop: 07/23/19 07:58 Last Titration: 07/21/19 21:30 Dose: 1.38 units/hr, 23 mls/hr Documented by: [id number] Titration: 07/21/19 19:30 Dose: 1.26 units/hr, 21 mls/hr Documented by: [id number] Titration: 07/21/19 19:15 Dose: 1.14 units/hr, 19 mls/hr Documented by: [id number] Titration: 07/21/19 17:10 Dose: 1.14 units/hr, 19 mls/hr Documented by: [id number] Titration: 07/21/19 16:15 Dose: 1.02 units/hr, 17 mls/hr Documented by: [id number] Titration: 07/21/19 15:45 Dose: 0.9 units/hr, 15 mls/hr Documented by: [id number] Titration: 07/21/19 14:02 Dose: 0.78 units/hr, 13 mls/hr Documented by: [id number] Titration: 07/21/19 12:25 Dose: 0.66 units/hr, 11 mls/hr Documented by: [id number] Titration: 07/21/19 11:50 Dose: 0.54 units/hr, 9 mls/hr Documented by: [id number] Titration: 07/21/19 11:20 Dose: 0.42 units/hr, 7 mls/hr Documented by: [id number] Titration: 07/21/19 09:35 Dose: 0.3 units/hr, 5 mls/hr Documented by: [id number] Titration: 07/21/19 09:05 Dose: 0.18 units/hr, 3 mls/hr Documented by: [id number] Admin: 07/21/19 08:34 Dose: 0.06 units/hr, 1 mls/hr Documented by: [id number] Cosigned by: [id number] Ropivacaine (Epidural (L&D)) 100 ml EPI PRN PRN; Protocol PRN Reason: Pain R/T Labor Stop: 07/22/19 10:08 Last Admin: 07/22/19 01:29 Dose: 100 ml Documented by: [id number] Cosigned by: [id number] Admin: 07/21/19 20:51 Dose: 100 ml Documented by: [id number] Cosigned by: [id number] Admin: 07/21/19 16:20 Dose: 100 ml Documented by: [id number] Cosigned by: [id number]
[2019-07-22] MEDS ORDERED: fentaNYL citrate 100 MCG/2 ML VIAL ONE (05:41)
--- NOTE | 2019-07-22 06:06 | Labor Progress Brief Note ---
Date of Service July 22, 2019 Subjective Reason For Note: Change In Status went to see pt due to decel, pit off anesth in room to help with pain mgmt. Assessment & Plan (1) Prolonged , antepartum: (2) Encounter for induction of labor: will allow fetus to recover and then likely will need pitocin. Physical Exam Genitourinary: Manual OB Exam: + cervical dilation (lip, more on right), + cervical effacement 100% and + station 0 OB Exam Monitor Tracing: + external FHT monitor used (155 mod variability, early decels) and + external uterine monitor used (q5min) Results & Data Vital Signs (Past 12 Hours) Vital Signs Temp Pulse Resp BP Pulse Ox 07/22/19 06:00 93 H 101/55 L 07/22/19 05:59 92 H 98 07/22/19 05:58 89 102/55 L 07/22/19 05:56 90 104/58 L 07/22/19 05:55 97 H 106/57 L 07/22/19 05:54 102 H 100 07/22/19 05:49 109 H 99 07/22/19 05:45 119 H 88 L 07/22/19 05:44 115 H 106/55 L 93 07/22/19 05:42 103 H 111/57 L 07/22/19 05:40 104 H 108/56 L 07/22/19 05:39 105 H 96 07/22/19 05:38 102 H 110/57 L 07/22/19 05:36 99 H 112/55 L 07/22/19 05:34 106 H 109/56 L 98 07/22/19 05:32 99.1 F 112 H 20 105/59 L 07/22/19 05:30 100 H 116/55 L 07/22/19 05:29 92 H 100 07/22/19 05:28 86 134/61 86 L 07/22/19 05:24 90 98 07/22/19 05:22 96 H 118/56 L 07/22/19 05:19 94 H 99 07/22/19 05:14 94 H 99 07/22/19 05:09 96 H 88 L 07/22/19 05:04 107 H 86 L 07/22/19 05:03 107 H 89 L 07/22/19 04:58 106 H 100 07/22/19 04:54 96 H 131/61 07/22/19 04:53 97 H 97 07/22/19 04:52 101 H 87 L 07/22/19 04:48 106 H 97 07/22/19 04:43 125 H 76 L 07/22/19 04:39 99 H 153/81 H 07/22/19 04:38 100 H 98 07/22/19 04:33 105 H 96 07/22/19 04:31 99.1 F 18 07/22/19 04:28 107 H 96 07/22/19 04:23 104 H 136/66 96 07/22/19 04:22 111 H 86 L 07/22/19 04:18 114 H 93 07/22/19 04:15 106 H 88 L 07/22/19 04:13 111 H 96 07/22/19 04:08 102 H 136/77 97 07/22/19 04:03 113 H 97 07/22/19 03:58 114 H 97 07/22/19 03:55 112 H 143/68 H 07/22/19 03:53 112 H 97 07/22/19 03:48 109 H 97 07/22/19 03:43 107 H 97 07/22/19 03:38 99 H 97 07/22/19 03:37 117 H 110/58 L 07/22/19 03:33 131 H 98 07/22/19 03:32 116 H 111/63 07/22/19 03:31 100.0 F H 18 07/22/19 03:30 113 H 18 105/57 L 07/22/19 03:28 109 H 106/57 L 97 07/22/19 03:26 107 H 114/62 07/22/19 03:24 108 H 115/65 07/22/19 03:23 102 H 96 07/22/19 03:22 100 H 112/63 07/22/19 03:20 111 H 109/65 07/22/19 03:18 106 H 113/67 97 07/22/19 03:16 115 H 106/67 07/22/19 03:14 111 H 104/56 L 07/22/19 03:13 103 H 98 07/22/19 03:12 106 H 99/56 L 07/22/19 03:10 101 H 102/59 L 07/22/19 03:08 105 H 101/58 L 97 07/22/19 03:06 103 H 102/59 L 07/22/19 03:04 106 H 104/58 L 07/22/19 03:03 105 H 99 07/22/19 03:02 114 H 99/57 L 07/22/19 03:00 107 H 16 104/55 L 07/22/19 02:58 107 H 107/58 L 99 07/22/19 02:56 108 H 105/58 L 07/22/19 02:54 127 H 98/56 L 07/22/19 02:53 114 H 97 07/22/19 02:52 117 H 100/55 L 07/22/19 02:50 101 H 103/55 L 07/22/19 02:48 111 H 99/56 L 99 07/22/19 02:46 110 H 100/54 L 07/22/19 02:44 114 H 104/56 L 07/22/19 02:43 113 H 99 07/22/19 02:41 112 H 107/55 L 07/22/19 02:38 122 H 100 07/22/19 02:37 144 H 79/48 L 07/22/19 02:33 127 H 98 07/22/19 02:31 100.0 F H 133 H 18 95/51 L 07/22/19 02:28 124 H 97 07/22/19 02:23 128 H 98 07/22/19 02:22 103 H 123/59 L 07/22/19 02:20 78 113/69 07/22/19 02:18 112 H 126/74 97 07/22/19 02:16 98 H 117/61 07/22/19 02:14 103 H 124/57 L 07/22/19 02:13 107 H 97 07/22/19 02:12 96 H 125/59 L 07/22/19 02:10 99 H 18 121/57 L 07/22/19 02:08 102 H 123/66 97 07/22/19 02:06 96 H 124/61 07/22/19 02:04 102 H 135/60 07/22/19 02:03 99 H 98 07/22/19 01:58 110 H 131/74 96 07/22/19 01:53 103 H 96 07/22/19 01:48 111 H 96 07/22/19 01:44 105 H 136/60 07/22/19 01:43 105 H 95 07/22/19 01:38 102 H 98 07/22/19 01:33 112 H 98 07/22/19 01:29 106 H 116/58 L 07/22/19 01:28 103 H 96 07/22/19 01:23 123 H 98 07/22/19 01:18 101 H 95 07/22/19 01:14 120 H 114/59 L 07/22/19 01:13 104 H 97 07/22/19 01:08 99 H 96 07/22/19 01:03 105 H 96 07/22/19 00:58 104 H 97 07/22/19 00:57 99.3 F 103 H 18 121/67 07/22/19 00:53 103 H 97 07/22/19 00:48 103 H 98 07/22/19 00:44 101 H 117/58 L 07/22/19 00:43 104 H 97 07/22/19 00:38 109 H 98 07/22/19 00:33 102 H 100 07/22/19 00:28 103 H 97 07/22/19 00:27 89 117/68 07/22/19 00:23 102 H 98 07/22/19 00:18 96 H 100 07/22/19 00:15 100 H 122/70 07/22/19 00:13 98 H 99 07/22/19 00:08 98 H 98 07/22/19 00:03 99 H 98 07/21/19 23:58 91 H 127/65 98 07/21/19 23:53 96 H 99 07/21/19 23:48 94 H 99 07/21/19 23:43 97 H 119/72 99 07/21/19 23:38 95 H 98 07/21/19 23:33 88 99 07/21/19 23:30 112 H 106/71 07/21/19 23:28 99 H 100 07/21/19 23:27 18 07/21/19 23:23 91 H 99 07/21/19 23:18 90 98 07/21/19 23:13 88 99 07/21/19 23:08 99 H 99 07/21/19 23:06 93 H 109/59 L 07/21/19 23:03 87 99 07/21/19 23:01 87 106/55 L 07/21/19 22:58 91 H 99 07/21/19 22:56 90 113/56 L 07/21/19 22:53 87 99 07/21/19 22:51 99.3 F 90 18 113/59 L 07/21/19 22:48 86 99 07/21/19 22:47 85 112/59 L 07/21/19 22:43 108 H 99 07/21/19 22:41 98 H 101/55 L 07/21/19 22:40 105 H 93/53 L 07/21/19 22:38 97 H 99 07/21/19 22:37 100 H 109/55 L 07/21/19 22:35 88 125/61 07/21/19 22:33 109 H 126/81 98 07/21/19 22:29 87 151/67 H 07/21/19 22:28 91 H 98 07/21/19 22:27 88 131/60 07/21/19 22:25 83 127/68 07/21/19 22:23 83 125/66 98 07/21/19 22:21 86 128/63 07/21/19 22:18 106 H 100 07/21/19 22:16 86 123/63 07/21/19 22:13 92 H 100 07/21/19 22:08 98 H 96 07/21/19 22:03 93 H 98 07/21/19 22:02 85 120/62 07/21/19 21:59 18 07/21/19 21:58 97 H 97 07/21/19 21:53 105 H 97 07/21/19 21:48 107 H 98 07/21/19 21:46 90 118/69 07/21/19 21:43 94 H 97 07/21/19 21:38 95 H 97 07/21/19 21:33 103 H 98 07/21/19 21:31 97 H 118/70 07/21/19 21:30 16 07/21/19 21:28 100 H 98 07/21/19 21:23 108 H 100 07/21/19 21:18 97 H 98 07/21/19 21:16 95 H 118/79 07/21/19 21:13 97 H 98 07/21/19 21:08 91 H 98 07/21/19 21:03 101 H 130/64 98 07/21/19 21:02 107 H 88 L 07/21/19 20:58 96 H 97 07/21/19 20:53 101 H 97 07/21/19 20:50 99.5 F 18 07/21/19 20:48 95 H 120/74 98 07/21/19 20:43 99 H 98 07/21/19 20:38 106 H 97 07/21/19 20:33 100 H 96 07/21/19 20:32 105 H 117/78 07/21/19 20:28 105 H 97 07/21/19 20:23 99 H 98 07/21/19 20:18 105 H 97 07/21/19 20:13 114 H 97 07/21/19 20:11 110 H 126/70 07/21/19 20:08 109 H 96 07/21/19 20:07 110 H 124/82 07/21/19 20:03 109 H 97 07/21/19 20:01 108 H 121/74 07/21/19 19:58 103 H 97 07/21/19 19:57 110 H 125/73 07/21/19 19:53 105 H 95 07/21/19 19:52 97 H 116/66 07/21/19 19:48 87 97 07/21/19 19:46 88 130/57 L 07/21/19 19:43 89 97 07/21/19 19:41 86 107/58 L 07/21/19 19:38 81 97 07/21/19 19:36 93 H 98/55 L 07/21/19 19:33 85 96 07/21/19 19:30 90 18 106/62 07/21/19 19:28 88 104/60 97 07/21/19 19:26 80 103/58 L 07/21/19 19:23 89 96 07/21/19 19:18 86 96 07/21/19 19:13 98.1 F 90 18 97 07/21/19 19:08 96 H 130/71 97 07/21/19 19:03 90 98 07/21/19 18:58 101 H 96 07/21/19 18:54 85 126/64 07/21/19 18:53 87 97 07/21/19 18:48 88 97 07/21/19 18:43 86 97 07/21/19 18:38 91 H 111/66 97 07/21/19 18:33 91 H 97 07/21/19 18:28 88 97 07/21/19 18:23 88 114/67 96 07/21/19 18:18 79 97 07/21/19 18:13 86 97 07/21/19 18:09 85 111/59 L 07/21/19 18:08 87 97 07/21/19 18:03 89 97
[2019-07-22] MEDS ORDERED: fentaNYL citrate 100 MCG/2 ML VIAL IV ONE (06:18)
--- NOTE | 2019-07-22 08:37 | Labor Progress Brief Note ---
Date of Service July 22, 2019 Subjective Reason For Note: Routine Evaluation pt pushing Assessment & Plan (1) Prolonged , antepartum: (2) Encounter for induction of labor: cont 2nd stage. pt aware i am leaving and Dr. Wallace assuming care. fhts reassuring. Physical Exam Constitutional: WD/WN, vitals as above Genitourinary: OB Exam Monitor Tracing: + external FHT monitor used (140 mod variabilty), + external uterine monitor used (q2), + category II, + normal FHT variability and + variable decelerations Results & Data Vital Signs (Past 12 Hours) Vital Signs Temp Pulse Resp BP Pulse Ox 07/22/19 08:29 98 H 93 07/22/19 08:24 136 H 92 07/22/19 08:22 125 H 121/81 07/22/19 08:19 104 H 96 07/22/19 08:14 98 H 99 07/22/19 08:09 93 H 97 07/22/19 08:04 126 H 89 L 07/22/19 08:00 99.3 F 16 07/22/19 07:59 138 H 98 07/22/19 07:54 123 H 93 07/22/19 07:53 100 H 152/67 H 07/22/19 07:49 108 H 96 07/22/19 07:44 116 H 85 L 07/22/19 07:40 100 H 79 L 07/22/19 07:39 93 H 98 07/22/19 07:38 89 127/65 07/22/19 07:34 97 H 93 07/22/19 07:29 92 H 92 07/22/19 07:24 92 H 92 07/22/19 07:23 91 H 135/77 07/22/19 07:19 89 91 07/22/19 07:14 100 H 79 L 07/22/19 07:10 99.1 F 18 07/22/19 07:09 99 H 88 L 07/22/19 07:08 94 H 89 L 07/22/19 07:07 111 H 113/69 07/22/19 07:04 88 122/68 91 07/22/19 07:03 85 89 L 07/22/19 07:02 90 110/60 07/22/19 07:00 81 115/65 07/22/19 06:59 81 97 07/22/19 06:58 87 111/60 07/22/19 06:56 92 H 118/61 07/22/19 06:54 87 109/56 L 91 07/22/19 06:52 94 H 107/58 L 07/22/19 06:50 90 105/56 L 07/22/19 06:49 91 H 93 07/22/19 06:48 90 106/58 L 07/22/19 06:46 82 112/55 L 07/22/19 06:44 93 H 109/55 L 97 07/22/19 06:42 89 108/56 L 07/22/19 06:40 92 H 108/59 L 07/22/19 06:39 90 98 07/22/19 06:38 85 110/59 L 07/22/19 06:36 86 104/55 L 07/22/19 06:34 84 109/55 L 90 07/22/19 06:33 88 89 L 07/22/19 06:32 87 109/55 L 07/22/19 06:30 93 H 102/57 L 07/22/19 06:29 86 93 07/22/19 06:28 90 104/58 L 07/22/19 06:26 90 98/54 L 07/22/19 06:24 92 H 102/56 L 95 07/22/19 06:23 97 H 98/60 L 07/22/19 06:22 89 84 L 07/22/19 06:20 99.0 F 88 18 102/58 L 07/22/19 06:19 95 H 96 07/22/19 06:18 94 H 105/56 L 07/22/19 06:16 92 H 105/54 L 07/22/19 06:15 113 H 116/57 L 07/22/19 06:14 95 H 77 L 07/22/19 06:12 88 107/57 L 07/22/19 06:10 88 118/59 L 07/22/19 06:09 92 H 99 07/22/19 06:08 86 130/59 L 07/22/19 06:06 101 H 118/61 07/22/19 06:04 97 H 114/65 98 07/22/19 06:02 89 104/59 L 07/22/19 06:00 93 H 18 101/55 L 07/22/19 05:59 92 H 98 07/22/19 05:58 89 102/55 L 07/22/19 05:56 90 104/58 L 07/22/19 05:55 97 H 106/57 L 07/22/19 05:54 102 H 100 07/22/19 05:49 109 H 99 07/22/19 05:45 119 H 88 L 07/22/19 05:44 115 H 106/55 L 93 07/22/19 05:42 103 H 111/57 L 07/22/19 05:40 104 H 108/56 L 07/22/19 05:39 105 H 96 07/22/19 05:38 102 H 110/57 L 07/22/19 05:36 99 H 112/55 L 07/22/19 05:34 106 H 109/56 L 98 07/22/19 05:32 99.1 F 112 H 20 105/59 L 07/22/19 05:30 100 H 116/55 L 07/22/19 05:29 92 H 100 07/22/19 05:28 86 134/61 86 L 07/22/19 05:24 90 98 07/22/19 05:22 96 H 118/56 L 07/22/19 05:19 94 H 99 07/22/19 05:14 94 H 99 07/22/19 05:09 96 H 88 L 07/22/19 05:04 107 H 86 L 07/22/19 05:03 107 H 89 L 07/22/19 04:58 106 H 100 07/22/19 04:54 96 H 131/61 07/22/19 04:53 97 H 97 07/22/19 04:52 101 H 87 L 07/22/19 04:48 106 H 97 07/22/19 04:43 125 H 76 L 07/22/19 04:39 99 H 153/81 H 07/22/19 04:38 100 H 98 07/22/19 04:33 105 H 96 07/22/19 04:31 99.1 F 18 07/22/19 04:28 107 H 96 07/22/19 04:23 104 H 136/66 96 07/22/19 04:22 111 H 86 L 07/22/19 04:18 114 H 93 07/22/19 04:15 106 H 88 L 07/22/19 04:13 111 H 96 07/22/19 04:08 102 H 136/77 97 07/22/19 04:03 113 H 97 07/22/19 03:58 114 H 97 07/22/19 03:55 112 H 143/68 H 07/22/19 03:53 112 H 97 07/22/19 03:48 109 H 97 07/22/19 03:43 107 H 97 07/22/19 03:38 99 H 97 07/22/19 03:37 117 H 110/58 L 07/22/19 03:33 131 H 98 07/22/19 03:32 116 H 111/63 07/22/19 03:31 100.0 F H 18 07/22/19 03:30 113 H 18 105/57 L 07/22/19 03:28 109 H 106/57 L 97 07/22/19 03:26 107 H 114/62 07/22/19 03:24 108 H 115/65 07/22/19 03:23 102 H 96 07/22/19 03:22 100 H 112/63 07/22/19 03:20 111 H 109/65 07/22/19 03:18 106 H 113/67 97 07/22/19 03:16 115 H 106/67 07/22/19 03:14 111 H 104/56 L 07/22/19 03:13 103 H 98 07/22/19 03:12 106 H 99/56 L 07/22/19 03:10 101 H 102/59 L 07/22/19 03:08 105 H 101/58 L 97 07/22/19 03:06 103 H 102/59 L 07/22/19 03:04 106 H 104/58 L 07/22/19 03:03 105 H 99 07/22/19 03:02 114 H 99/57 L 07/22/19 03:00 107 H 16 104/55 L 07/22/19 02:58 107 H 107/58 L 99 07/22/19 02:56 108 H 105/58 L 07/22/19 02:54 127 H 98/56 L 07/22/19 02:53 114 H 97 07/22/19 02:52 117 H 100/55 L 07/22/19 02:50 101 H 103/55 L 07/22/19 02:48 111 H 99/56 L 99 07/22/19 02:46 110 H 100/54 L 07/22/19 02:44 114 H 104/56 L 07/22/19 02:43 113 H 99 07/22/19 02:41 112 H 107/55 L 07/22/19 02:38 122 H 100 07/22/19 02:37 144 H 79/48 L 07/22/19 02:33 127 H 98 07/22/19 02:31 100.0 F H 133 H 18 95/51 L 07/22/19 02:28 124 H 97 07/22/19 02:23 128 H 98 07/22/19 02:22 103 H 123/59 L 07/22/19 02:20 78 113/69 07/22/19 02:18 112 H 126/74 97 07/22/19 02:16 98 H 117/61 07/22/19 02:14 103 H 124/57 L 07/22/19 02:13 107 H 97 07/22/19 02:12 96 H 125/59 L 07/22/19 02:10 99 H 18 121/57 L 07/22/19 02:08 102 H 123/66 97 07/22/19 02:06 96 H 124/61 07/22/19 02:04 102 H 135/60 07/22/19 02:03 99 H 98 07/22/19 01:58 110 H 131/74 96 07/22/19 01:53 103 H 96 07/22/19 01:48 111 H 96 07/22/19 01:44 105 H 136/60 07/22/19 01:43 105 H 95 07/22/19 01:38 102 H 98 07/22/19 01:33 112 H 98 07/22/19 01:29 106 H 116/58 L 07/22/19 01:28 103 H 96 07/22/19 01:23 123 H 98 07/22/19 01:18 101 H 95 07/22/19 01:14 120 H 114/59 L 07/22/19 01:13 104 H 97 07/22/19 01:08 99 H 96 07/22/19 01:03 105 H 96 07/22/19 00:58 104 H 97 07/22/19 00:57 99.3 F 103 H 18 121/67 07/22/19 00:53 103 H 97 07/22/19 00:48 103 H 98 07/22/19 00:44 101 H 117/58 L 07/22/19 00:43 104 H 97 07/22/19 00:38 109 H 98 07/22/19 00:33 102 H 100 07/22/19 00:28 103 H 97 07/22/19 00:27 89 117/68 07/22/19 00:23 102 H 98 07/22/19 00:18 96 H 100 07/22/19 00:15 100 H 122/70 07/22/19 00:13 98 H 99 07/22/19 00:08 98 H 98 07/22/19 00:03 99 H 98 07/21/19 23:58 91 H 127/65 98 07/21/19 23:53 96 H 99 07/21/19 23:48 94 H 99 07/21/19 23:43 97 H 119/72 99 07/21/19 23:38 95 H 98 07/21/19 23:33 88 99 07/21/19 23:30 112 H 106/71 07/21/19 23:28 99 H 100 07/21/19 23:27 18 07/21/19 23:23 91 H 99 07/21/19 23:18 90 98 07/21/19 23:13 88 99 07/21/19 23:08 99 H 99 07/21/19 23:06 93 H 109/59 L 07/21/19 23:03 87 99 07/21/19 23:01 87 106/55 L 07/21/19 22:58 91 H 99 07/21/19 22:56 90 113/56 L 07/21/19 22:53 87 99 07/21/19 22:51 99.3 F 90 18 113/59 L 07/21/19 22:48 86 99 07/21/19 22:47 85 112/59 L 07/21/19 22:43 108 H 99 07/21/19 22:41 98 H 101/55 L 07/21/19 22:40 105 H 93/53 L 07/21/19 22:38 97 H 99 07/21/19 22:37 100 H 109/55 L 07/21/19 22:35 88 125/61 07/21/19 22:33 109 H 126/81 98 07/21/19 22:29 87 151/67 H 07/21/19 22:28 91 H 98 07/21/19 22:27 88 131/60 07/21/19 22:25 83 127/68 07/21/19 22:23 83 125/66 98 07/21/19 22:21 86 128/63 07/21/19 22:18 106 H 100 07/21/19 22:16 86 123/63 07/21/19 22:13 92 H 100 07/21/19 22:08 98 H 96 07/21/19 22:03 93 H 98 07/21/19 22:02 85 120/62 07/21/19 21:59 18 07/21/19 21:58 97 H 97 07/21/19 21:53 105 H 97 07/21/19 21:48 107 H 98 07/21/19 21:46 90 118/69 07/21/19 21:43 94 H 97 07/21/19 21:38 95 H 97 07/21/19 21:33 103 H 98 07/21/19 21:31 97 H 118/70 07/21/19 21:30 16 07/21/19 21:28 100 H 98 07/21/19 21:23 108 H 100 07/21/19 21:18 97 H 98 07/21/19 21:16 95 H 118/79 07/21/19 21:13 97 H 98 07/21/19 21:08 91 H 98 07/21/19 21:03 101 H 130/64 98 07/21/19 21:02 107 H 88 L 07/21/19 20:58 96 H 97 07/21/19 20:53 101 H 97 07/21/19 20:50 99.5 F 18 07/21/19 20:48 95 H 120/74 98 07/21/19 20:43 99 H 98 07/21/19 20:38 106 H 97
[2019-07-22] MEDS ORDERED: CALCIUM CARBONATE 500 MG CHEWABLE TAB PO PRN (09:23)
[2019-07-22] MEDS ORDERED: ONDANSETRON INJ 2 MG/ML 2 ML VIAL IV PRN ×3 (09:48→12:15)
[2019-07-22] MEDS: AMPICILLIN 2,000 MG in SODIUM CHLOR 0.9% AD-VAN 100 ML IV SCH ×3 (09:49→21:47)
[2019-07-22] MEDS ORDERED: AZITHROMYCIN 500 MG in DEXTROSE 5% 250 ML IV STA (10:25)
[2019-07-22] MEDS ORDERED: CEFAZOLIN 2000MG 2,000 MG/15 ML SYR IV SCH ×2 (10:30→20:30)
[2019-07-22] MEDS ORDERED: CITRIC ACID/SODIUM CITRATE 15 ML UDC ONE (10:33)
[2019-07-22] MEDS ORDERED: MoRPHine SULFATE PF 1 MG/ML 10 ML AMP/VIAL ONE (10:47)
[2019-07-22] MEDS ORDERED: NALBUPHINE HCL INJ 10 MG/ML AMP IV PRN (11:27)
[2019-07-22] MEDS ORDERED: MoRPHine SULFATE PF 1 MG/ML 10 ML AMP/VIAL INT SPINAL ONE (11:27)
[2019-07-22] MEDS ORDERED: NALOXONE HCL 0.4 MG/1 ML VIAL/CARP IV PRN (11:27)
[2019-07-22] MEDS ORDERED: MEPERIDINE HCL 25 MG/ML CARP IV PRN (11:27)
[2019-07-22] MEDS ORDERED: NALOXONE HCL 0.08 MG in SYRINGE 1.8 ML IV PRN (11:27)
[2019-07-22] MEDS ORDERED: PROMETHAZINE HCL 12.5 MG in SODIUM CHLORIDE 0.9% 50 ML IV PRN (11:27)
[2019-07-22] MEDS ORDERED: LACTATED RINGER'S 500 ML IV PRN (11:27)
[2019-07-22] MEDS ORDERED: NALOXONE HCL 1 MG in SODIUM CHLORIDE 0.9% 1000ML 1,000 ML IV PRN (11:27)
[2019-07-22] MEDS ORDERED: KETOROLAC 30 MG/ML VIAL IV PRN (11:27)
[2019-07-22] MEDS ORDERED: DiphenhydrAMINE HCL 50 MG/ML VIAL IV PRN (11:27)
[2019-07-22] MEDS ORDERED: ePHEDrine sulfate 50 MG/ML AMP IV PRN (11:27)
[2019-07-22] MEDS ORDERED: NO NARCOTICS OR SEDATIVES SCH (11:30)
[2019-07-22] MEDS ORDERED: DC INTRASPINAL MORPHINE SCH (11:30)
[2019-07-22] MEDS ORDERED: SODIUM CHLORIDE 0.9% 1000ML 1,000 ML IV SCH (11:30)
[2019-07-22] MEDS ORDERED: SUCCINYLCHOLINE CHLORIDE 20 MG/ML 10 ML VIAL ONE (11:43)
[2019-07-22] MEDS ORDERED: PHENYLEPHRINE 100MCG/ML 5ML SYR ONE (11:43)
[2019-07-22] MEDS ORDERED: METOCLOPRAMIDE HCL INJ 5 MG/ML 2 ML VIAL ONE (11:43)
[2019-07-22] MEDS ORDERED: OXYTOCIN 10 UNITS/ML VIAL ONE (11:43)
[2019-07-22] MEDS ORDERED: ONDANSETRON INJ 2 MG/ML 2 ML VIAL ONE (11:43)
[2019-07-22] MEDS ORDERED: PROPOFOL IV EMULSION 10 MG/ML 20 ML VIAL IV ONE (11:43)
[2019-07-22] MEDS ORDERED: GENTAMICIN SULFATE 40 MG/ML 20 ML VIAL IV ONE (12:00)
--- NOTE | 2019-07-22 12:14 | Post Operative Brief Note ---
[facility] Immediate Post Op with CF Date of Surgery July 22, 2019 Pre & Post Diagnosis Operation Date: 07/22/19 11:00 Pre-Op Diagnosis: term - failed induction- arrest of descent Post-Op Diagnosis: same with delivery of living male child at 1131 Procedure Operation Date: 07/22/19 11:00 Actual Procedures p Section in LD(Bilateral) - Gildardo Wallace MD Complications: None Surgeon Gildardo Wallace MD Financial Aid Officer None Estimated Blood Loss 600 Findings Consistent with Post-Op Diagnosis Specimens Specimen Description: placenta- hold cord blood specimen cord blood donation Drains Hearn Catheter
[2019-07-22] MEDS ORDERED: MAGNESIUM HYDROXIDE SUSP 30 ML UDC PO PRN (12:15)
[2019-07-22] MEDS ORDERED: SENNA 8.6 MG TAB PO PRN (12:15)
[2019-07-22] MEDS ORDERED: LACTATED RINGER'S 1,000 ML IV SCH (12:15)
[2019-07-22] MEDS ORDERED: SUPERCREAM 0.870% 15 GM JAR EXT PRN (12:15)
[2019-07-22] MEDS ORDERED: HYDROCORTISONE ACETATE 25 MG SUPP PR PRN (12:15)
[2019-07-22] MEDS ORDERED: BENZOCAINE 20% AER SPR 82.5 GM CAN EXT PRN (12:15)
[2019-07-22] MEDS ORDERED: DIPHTHERIA/TETANUS/PERTUSSIS 0.5 ML SYR/VIAL IM ONE (12:15)
[2019-07-22] MEDS: OXYTOCIN 20 UNITS in LACTATED RINGER'S 1,000 ML IV SCH ×2 (12:55→22:34)
[2019-07-22] MEDS: SIMETHICONE 80 MG CHEW PO SCH ×3 (13:09→20:43)
--- NOTE | 2019-07-22 13:38 | Anesthesia Procedure Note ---
Date of Service July 22, 2019 Anesthesia Post Epidural Note Vital Signs Vital Signs: Temp Pulse Resp BP Pulse Ox 37.2 C 91 H 18 135/77 96 07/22/19 13:25 07/22/19 13:36 07/22/19 13:25 07/22/19 13:31 07/22/19 13:36 Pain Intensity Bilateral Abdomen: Pain Intensity: 1 Notes Mental Status: alert / awake / arousable and participated in evaluation Nausea / Vomiting: adequately controlled Pain: adequately controlled Airway Patency, RR, SpO2: stable & adequate BP & HR: stable & adequate Hydration State: stable & adequate Neuraxial Anesthesia: was administered and sensory block is resolving Anesthetic Complications: no major complications apparent Epidural: Removed without complications and With tip intact
--- NOTE | 2019-07-22 13:38 | Anesthesiology Progress Note ---
Date of Service July 22, 2019 Anesthesia Post Procedure Vital Signs Vital Signs: Temp Pulse Resp BP Pulse Ox 07/22/19 13:36 91 H 96 07/22/19 13:31 95 H 135/77 97 07/22/19 13:27 114 H 93 07/22/19 13:26 113 H 95 07/22/19 13:25 37.2 C 114 H 18 93 07/22/19 13:21 97 H 134/70 96 07/22/19 13:16 99 H 96 07/22/19 13:15 97 H 18 134/70 96 07/22/19 13:11 100 H 118/69 95 07/22/19 13:06 99 H 97 07/22/19 13:05 99 H 18 114/61 97 07/22/19 13:01 99 H 18 114/61 97 07/22/19 12:56 99 H 97 07/22/19 12:55 99 H 18 114/61 97 07/22/19 12:51 97 H 116/60 95 07/22/19 12:46 105 H 97 07/22/19 12:45 103 H 18 117/66 100 07/22/19 12:41 103 H 117/66 100 07/22/19 12:36 100 H 98 07/22/19 12:35 105 H 16 117/66 07/22/19 12:31 97 H 119/60 99 07/22/19 12:26 111 H 98 07/22/19 12:25 37.5 C 18 07/22/19 12:21 115 H 99 07/22/19 12:20 110 H 136/58 L 07/22/19 11:05 101 H 88 L 07/22/19 11:00 37.1 C 99 H 18 93 07/22/19 10:56 94 H 89 L 07/22/19 10:55 96 H 87 L 07/22/19 10:52 87 130/65 07/22/19 10:50 165 H 84 L 07/22/19 10:45 92 H 93 07/22/19 10:44 103 H 124/66 07/22/19 10:43 107 H 87 L 07/22/19 10:40 100 H 93 07/22/19 10:35 98 H 94 07/22/19 10:30 110 H 94 07/22/19 10:28 116 H 88 L 07/22/19 10:25 110 H 93 07/22/19 10:22 105 H 126/67 07/22/19 10:20 102 H 92 07/22/19 10:15 182 H 82 L 07/22/19 10:14 131 H 86 L 07/22/19 10:10 103 H 68 L 07/22/19 10:09 92 H 89 L 07/22/19 10:07 97 H 116/61 07/22/19 10:04 91 H 89 L 07/22/19 10:03 88 90 07/22/19 10:01 37.1 C 18 07/22/19 09:59 137 H 81 L 07/22/19 09:55 109 H 90 07/22/19 09:54 96 H 124/70 07/22/19 09:50 116 H 93 07/22/19 09:45 112 H 91 07/22/19 09:41 116 H 88 L 07/22/19 09:40 105 H 96 07/22/19 09:37 88 127/68 07/22/19 09:36 95 H 89 L 07/22/19 09:35 91 H 91 07/22/19 09:30 102 H 100 07/22/19 09:25 108 H 88 L 07/22/19 09:20 121 H 92 07/22/19 09:17 128 H 81 L 07/22/19 09:15 104 H 89 L 07/22/19 09:09 107 H 85 L 07/22/19 09:05 116 H 83 L 07/22/19 09:04 103 H 93 07/22/19 09:00 37.0 C 18 07/22/19 08:59 113 H 95 07/22/19 08:54 113 H 96 07/22/19 08:53 118 H 135/63 82 L 07/22/19 08:49 123 H 92 07/22/19 08:47 107 H 78 L 07/22/19 08:44 130 H 94 07/22/19 08:41 109 H 76 L 07/22/19 08:39 105 H 82 L 07/22/19 08:35 105 H 88 L 07/22/19 08:34 112 H 93 07/22/19 08:29 98 H 93 07/22/19 08:24 136 H 92 07/22/19 08:22 125 H 121/81 07/22/19 08:19 104 H 96 07/22/19 08:14 98 H 99 07/22/19 08:09 93 H 97 07/22/19 08:04 126 H 89 L 07/22/19 08:00 37.4 C 16 07/22/19 07:59 138 H 98 07/22/19 07:54 123 H 93 07/22/19 07:53 100 H 152/67 H 07/22/19 07:49 108 H 96 07/22/19 07:44 116 H 85 L 07/22/19 07:40 100 H 79 L 07/22/19 07:39 93 H 98 07/22/19 07:38 89 127/65 07/22/19 07:34 97 H 93 07/22/19 07:29 92 H 92 07/22/19 07:24 92 H 92 07/22/19 07:23 91 H 135/77 07/22/19 07:19 89 91 07/22/19 07:14 100 H 79 L 07/22/19 07:10 37.3 C 18 07/22/19 07:09 99 H 88 L 07/22/19 07:08 94 H 89 L 07/22/19 07:07 111 H 113/69 07/22/19 07:04 88 122/68 91 07/22/19 07:03 85 89 L 07/22/19 07:02 90 110/60 07/22/19 07:00 81 115/65 07/22/19 06:59 81 97 07/22/19 06:58 87 111/60 07/22/19 06:56 92 H 118/61 07/22/19 06:54 87 109/56 L 91 07/22/19 06:52 94 H 107/58 L 07/22/19 06:50 90 105/56 L 07/22/19 06:49 91 H 93 07/22/19 06:48 90 106/58 L 07/22/19 06:46 82 112/55 L 07/22/19 06:44 93 H 109/55 L 97 07/22/19 06:42 89 108/56 L 07/22/19 06:40 92 H 108/59 L 07/22/19 06:39 90 98 07/22/19 06:38 85 110/59 L 07/22/19 06:36 86 104/55 L 07/22/19 06:34 84 109/55 L 90 07/22/19 06:33 88 89 L 07/22/19 06:32 87 109/55 L 07/22/19 06:30 93 H 102/57 L 07/22/19 06:29 86 93 07/22/19 06:28 90 104/58 L 07/22/19 06:26 90 98/54 L 07/22/19 06:24 92 H 102/56 L 95 07/22/19 06:23 97 H 98/60 L 07/22/19 06:22 89 84 L 07/22/19 06:20 37.2 C 88 18 102/58 L 07/22/19 06:19 95 H 96 07/22/19 06:18 94 H 105/56 L 07/22/19 06:16 92 H 105/54 L 07/22/19 06:15 113 H 116/57 L 07/22/19 06:14 95 H 77 L 07/22/19 06:12 88 107/57 L 07/22/19 06:10 88 118/59 L 07/22/19 06:09 92 H 99 07/22/19 06:08 86 130/59 L 07/22/19 06:06 101 H 118/61 07/22/19 06:04 97 H 114/65 98 07/22/19 06:02 89 104/59 L 07/22/19 06:00 93 H 18 101/55 L 07/22/19 05:59 92 H 98 07/22/19 05:58 89 102/55 L 07/22/19 05:56 90 104/58 L 07/22/19 05:55 97 H 106/57 L 07/22/19 05:54 102 H 100 07/22/19 05:49 109 H 99 07/22/19 05:45 119 H 88 L 07/22/19 05:44 115 H 106/55 L 93 07/22/19 05:42 103 H 111/57 L 07/22/19 05:40 104 H 108/56 L 07/22/19 05:39 105 H 96 07/22/19 05:38 102 H 110/57 L 07/22/19 05:36 99 H 112/55 L 07/22/19 05:34 106 H 109/56 L 98 07/22/19 05:32 37.3 C 112 H 20 105/59 L 07/22/19 05:30 100 H 116/55 L 07/22/19 05:29 92 H 100 07/22/19 05:28 86 134/61 86 L 07/22/19 05:24 90 98 07/22/19 05:22 96 H 118/56 L 07/22/19 05:19 94 H 99 07/22/19 05:14 94 H 99 07/22/19 05:09 96 H 88 L 07/22/19 05:04 107 H 86 L 07/22/19 05:03 107 H 89 L 07/22/19 04:58 106 H 100 07/22/19 04:54 96 H 131/61 07/22/19 04:53 97 H 97 07/22/19 04:52 101 H 87 L 07/22/19 04:48 106 H 97 07/22/19 04:43 125 H 76 L 07/22/19 04:39 99 H 153/81 H 07/22/19 04:38 100 H 98 07/22/19 04:33 105 H 96 07/22/19 04:31 37.3 C 18 07/22/19 04:28 107 H 96 07/22/19 04:23 104 H 136/66 96 07/22/19 04:22 111 H 86 L 07/22/19 04:18 114 H 93 07/22/19 04:15 106 H 88 L 07/22/19 04:13 111 H 96 07/22/19 04:08 102 H 136/77 97 07/22/19 04:03 113 H 97 07/22/19 03:58 114 H 97 07/22/19 03:55 112 H 143/68 H 07/22/19 03:53 112 H 97 07/22/19 03:48 109 H 97 07/22/19 03:43 107 H 97 07/22/19 03:38 99 H 97 07/22/19 03:37 117 H 110/58 L 07/22/19 03:33 131 H 98 07/22/19 03:32 116 H 111/63 07/22/19 03:31 37.8 C H 18 07/22/19 03:30 113 H 18 105/57 L 07/22/19 03:28 109 H 106/57 L 97 07/22/19 03:26 107 H 114/62 07/22/19 03:24 108 H 115/65 07/22/19 03:23 102 H 96 07/22/19 03:22 100 H 112/63 07/22/19 03:20 111 H 109/65 07/22/19 03:18 106 H 113/67 97 07/22/19 03:16 115 H 106/67 07/22/19 03:14 111 H 104/56 L 07/22/19 03:13 103 H 98 07/22/19 03:12 106 H 99/56 L 07/22/19 03:10 101 H 102/59 L 07/22/19 03:08 105 H 101/58 L 97 07/22/19 03:06 103 H 102/59 L 07/22/19 03:04 106 H 104/58 L 07/22/19 03:03 105 H 99 07/22/19 03:02 114 H 99/57 L 07/22/19 03:00 107 H 16 104/55 L 07/22/19 02:58 107 H 107/58 L 99 07/22/19 02:56 108 H 105/58 L 07/22/19 02:54 127 H 98/56 L 07/22/19 02:53 114 H 97 07/22/19 02:52 117 H 100/55 L 07/22/19 02:50 101 H 103/55 L 07/22/19 02:48 111 H 99/56 L 99 07/22/19 02:46 110 H 100/54 L 07/22/19 02:44 114 H 104/56 L 07/22/19 02:43 113 H 99 07/22/19 02:41 112 H 107/55 L 07/22/19 02:38 122 H 100 07/22/19 02:37 144 H 79/48 L 07/22/19 02:33 127 H 98 07/22/19 02:31 37.8 C H 133 H 18 95/51 L 07/22/19 02:28 124 H 97 07/22/19 02:23 128 H 98 07/22/19 02:22 103 H 123/59 L 07/22/19 02:20 78 113/69 07/22/19 02:18 112 H 126/74 97 07/22/19 02:16 98 H 117/61 07/22/19 02:14 103 H 124/57 L 07/22/19 02:13 107 H 97 07/22/19 02:12 96 H 125/59 L 07/22/19 02:10 99 H 18 121/57 L 07/22/19 02:08 102 H 123/66 97 07/22/19 02:06 96 H 124/61 07/22/19 02:04 102 H 135/60 07/22/19 02:03 99 H 98 07/22/19 01:58 110 H 131/74 96 07/22/19 01:53 103 H 96 07/22/19 01:48 111 H 96 07/22/19 01:44 105 H 136/60 07/22/19 01:43 105 H 95 07/22/19 01:38 102 H 98 07/22/19 01:33 112 H 98 07/22/19 01:29 106 H 116/58 L 07/22/19 01:28 103 H 96 07/22/19 01:23 123 H 98 07/22/19 01:18 101 H 95 07/22/19 01:14 120 H 114/59 L 07/22/19 01:13 104 H 97 07/22/19 01:08 99 H 96 07/22/19 01:03 105 H 96 07/22/19 00:58 104 H 97 07/22/19 00:57 37.4 C 103 H 18 121/67 07/22/19 00:53 103 H 97 07/22/19 00:48 103 H 98 07/22/19 00:44 101 H 117/58 L 07/22/19 00:43 104 H 97 07/22/19 00:38 109 H 98 07/22/19 00:33 102 H 100 07/22/19 00:28 103 H 97 07/22/19 00:27 89 117/68 07/22/19 00:23 102 H 98 07/22/19 00:18 96 H 100 07/22/19 00:15 100 H 122/70 07/22/19 00:13 98 H 99 07/22/19 00:08 98 H 98 07/22/19 00:03 99 H 98 07/21/19 23:58 91 H 127/65 98 07/21/19 23:53 96 H 99 07/21/19 23:48 94 H 99 07/21/19 23:43 97 H 119/72 99 07/21/19 23:38 95 H 98 07/21/19 23:33 88 99 07/21/19 23:30 112 H 106/71 07/21/19 23:28 99 H 100 07/21/19 23:27 18 07/21/19 23:23 91 H 99 07/21/19 23:18 90 98 07/21/19 23:13 88 99 07/21/19 23:08 99 H 99 07/21/19 23:06 93 H 109/59 L 07/21/19 23:03 87 99 07/21/19 23:01 87 106/55 L 07/21/19 22:58 91 H 99 07/21/19 22:56 90 113/56 L 07/21/19 22:53 87 99 07/21/19 22:51 37.4 C 90 18 113/59 L 07/21/19 22:48 86 99 07/21/19 22:47 85 112/59 L 07/21/19 22:43 108 H 99 07/21/19 22:41 98 H 101/55 L 07/21/19 22:40 105 H 93/53 L 07/21/19 22:38 97 H 99 07/21/19 22:37 100 H 109/55 L 07/21/19 22:35 88 125/61 07/21/19 22:33 109 H 126/81 98 07/21/19 22:29 87 151/67 H 07/21/19 22:28 91 H 98 07/21/19 22:27 88 131/60 07/21/19 22:25 83 127/68 07/21/19 22:23 83 125/66 98 07/21/19 22:21 86 128/63 07/21/19 22:18 106 H 100 07/21/19 22:16 86 123/63 07/21/19 22:13 92 H 100 07/21/19 22:08 98 H 96 07/21/19 22:03 93 H 98 07/21/19 22:02 85 120/62 07/21/19 21:59 18 07/21/19 21:58 97 H 97 07/21/19 21:53 105 H 97 07/21/19 21:48 107 H 98 07/21/19 21:46 90 118/69 07/21/19 21:43 94 H 97 07/21/19 21:38 95 H 97 07/21/19 21:33 103 H 98 07/21/19 21:31 97 H 118/70 07/21/19 21:30 16 07/21/19 21:28 100 H 98 07/21/19 21:23 108 H 100 07/21/19 21:18 97 H 98 07/21/19 21:16 95 H 118/79 07/21/19 21:13 97 H 98 07/21/19 21:08 91 H 98 07/21/19 21:03 101 H 130/64 98 07/21/19 21:02 107 H 88 L 07/21/19 20:58 96 H 97 07/21/19 20:53 101 H 97 07/21/19 20:50 37.5 C 18 07/21/19 20:48 95 H 120/74 98 07/21/19 20:43 99 H 98 07/21/19 20:38 106 H 97 07/21/19 20:33 100 H 96 07/21/19 20:32 105 H 117/78 07/21/19 20:28 105 H 97 07/21/19 20:23 99 H 98 07/21/19 20:18 105 H 97 07/21/19 20:13 114 H 97 07/21/19 20:11 110 H 126/70 07/21/19 20:08 109 H 96 07/21/19 20:07 110 H 124/82 07/21/19 20:03 109 H 97 07/21/19 20:01 108 H 121/74 07/21/19 19:58 103 H 97 07/21/19 19:57 110 H 125/73 07/21/19 19:53 105 H 95 07/21/19 19:52 97 H 116/66 07/21/19 19:48 87 97 07/21/19 19:46 88 130/57 L 07/21/19 19:43 89 97 07/21/19 19:41 86 107/58 L 07/21/19 19:38 81 97 07/21/19 19:36 93 H 98/55 L 07/21/19 19:33 85 96 07/21/19 19:30 90 18 106/62 07/21/19 19:28 88 104/60 97 07/21/19 19:26 80 103/58 L 07/21/19 19:23 89 96 07/21/19 19:18 86 96 07/21/19 19:13 36.7 C 90 18 97 07/21/19 19:08 96 H 130/71 97 07/21/19 19:03 90 98 07/21/19 18:58 101 H 96 07/21/19 18:54 85 126/64 07/21/19 18:53 87 97 07/21/19 18:48 88 97 07/21/19 18:43 86 97 07/21/19 18:38 91 H 111/66 97 07/21/19 18:33 91 H 97 07/21/19 18:28 88 97 07/21/19 18:23 88 114/67 96 07/21/19 18:18 79 97 07/21/19 18:13 86 97 07/21/19 18:09 85 111/59 L 07/21/19 18:08 87 97 07/21/19 18:03 89 97 07/21/19 17:58 88 96 07/21/19 17:54 91 H 112/72 07/21/19 17:53 91 H 96 07/21/19 17:48 85 97 07/21/19 17:43 101 H 97 07/21/19 17:38 91 H 131/81 97 07/21/19 17:33 93 H 98 07/21/19 17:28 112 H 97 07/21/19 17:23 102 H 111/62 97 07/21/19 17:18 95 H 97 07/21/19 17:13 96 H 96 07/21/19 17:09 100 H 117/64 07/21/19 17:08 90 97 07/21/19 17:03 87 97 07/21/19 17:00 36.8 C 20 07/21/19 16:58 100 H 96 07/21/19 16:53 98 H 105/56 L 95 07/21/19 16:48 96 H 97 07/21/19 16:43 106 H 97 07/21/19 16:39 98 H 125/79 07/21/19 16:38 92 H 97 07/21/19 16:33 104 H 18 97 07/21/19 16:28 91 H 97 07/21/19 16:24 91 H 143/68 H 07/21/19 16:23 94 H 96 07/21/19 16:18 92 H 96 07/21/19 16:13 96 H 97 07/21/19 16:08 94 H 115/73 96 07/21/19 16:03 92 H 96 07/21/19 16:01 92 H 20 128/67 07/21/19 15:58 97 H 95 07/21/19 15:53 90 96 07/21/19 15:48 89 97 07/21/19 15:43 96 H 97 07/21/19 15:38 80 114/68 97 07/21/19 15:33 78 98 07/21/19 15:28 92 H 97 07/21/19 15:23 95 H 20 109/57 L 96 07/21/19 15:18 85 98 07/21/19 15:13 76 96 07/21/19 15:08 36.8 C 81 20 111/59 L 96 07/21/19 15:03 96 H 95 07/21/19 14:58 92 H 96 07/21/19 14:54 77 111/57 L 07/21/19 14:53 86 95 07/21/19 14:48 77 96 07/21/19 14:43 84 97 07/21/19 14:39 82 116/60 07/21/19 14:38 87 97 07/21/19 14:33 82 20 96 07/21/19 14:28 79 97 07/21/19 14:23 84 109/66 97 07/21/19 14:18 84 97 07/21/19 14:13 79 97 07/21/19 14:08 76 105/63 96 07/21/19 14:03 77 97 07/21/19 14:01 37.2 C 20 07/21/19 13:58 82 97 07/21/19 13:53 80 116/59 L 96 07/21/19 13:48 74 97 07/21/19 13:43 79 97 07/21/19 13:38 80 123/57 L 95 Pain Intensity Bilateral Abdomen: Pain Intensity: 1 Transfer of Care Handoff Completed per policy Notes Mental Status: alert / awake / arousable Patient Amnestic to Procedure: Yes Nausea / Vomiting: adequately controlled Pain: adequately controlled Airway Patency, RR, SpO2: stable & adequate BP & HR: stable & adequate Hydration State: stable & adequate Neuraxial Anesthesia: was administered and sensory block is resolving Anesthetic Complications: no major complications apparent
--- NOTE | 2019-07-22 13:45 | Operative Report ---
DATE OF OPERATION: 07/22/2019 PROCEDURE: Primary low transverse section. PREOPERATIVE DIAGNOSES: 1. Single intrauterine at term. 2. Failed induction. 3. Arrest of descent. 4. Chorioamnionitis. POSTOPERATIVE DIAGNOSES: 1. Single intrauterine at term. 2. Failed induction. 3. Arrest of descent. 4. Status post delivery. 5. Chorioamnionitis. SURGEON: Gildardo Wallace MD. ESTIMATED BLOOD LOSS: 600 mL. DRAINS: Hear[place]. FLUIDS: Continuous lactated ringer. URINE OUTPUT: Please see EMR. COMPLICATIONS: None. FINDINGS: Viable male with Apgars of 8 and 9 at 1 and 5 minutes respectively and weight pending. INDICATIONS: Natalie is a 28-year-old G1, P0, admitted at 41 weeks 0 days gestational age for induction of labor for postdates, has been uncomplicated. At time of admission, on initial evaluation, the patient was found to be 3-4 cm dilated, 50% effaced, -2 station. Her labor course was started with oxytocin per regular protocol. The patient had a spontaneous rupture of membranes around 8:50 a.m. She received an epidural for anesthesia and slowly progressed in labor to complete-complete 0 station. At that time, the patient did labor down for a short period of time and then began to push. The patient then pushed for approximately 2-1/2 hours with no significant change in station despite regular contractions. Management options at that time were discussed including allowing for another half hour of pushing versus proceeding with a primary section. The patient requests that we proceed with the primary section secondary to both maternal exhaustion and failure of descent. Consents were reviewed and signed at that time. The patient was prepared for the procedure. DESCRIPTION OF PROCEDURE: The patient was taken to the operating room after consents were ensured. Upon presentation was properly identified. The patient already had epidural anesthesia which was bolused to achieve adequate surgical levels. The patient was then prepped and draped in the normal sterile fashion. A preprocedural timeout was then performed. A Pfannenstiel incision was then made with a knife. This was carried down to underlying fascia with the Bovie. The fascia was then nicked at the midline with a knife. The fascia was then extended in each direction with pickups and Montiel scissors. The superior aspect of the fascia was then grasped with Kochers x2, elevated off the underlying rectus muscle using blunt dissection and the knife. The inferior aspect of the fascia was then grasped with Kochers x2 and elevated off the underlying rectus muscles using blunt dissection. The midline was then entered bluntly and placed on stretcher to provide adequate room for delivery. The head of the was noted to be in cephalic position with a higher arrest. A bladder flap was then created and a low transverse uterine incision was then made. The head of the was delivered easily through the hysterotomy, quickly followed by body and shoulders. The was noted to have good tone, though was not vigorous at initial delivery. A 30-second delayed cord clamping was initiated, after which the cord was double clamped and cut and the was handed off to the waiting nursery staff. Cord blood was then obtained. Attention was then turned to deliver the placenta, which was delivered intact with 3-vessel cord with direct manual removal. After uterine massage was first attempted and it was unsuccessful for delivery of the placenta. The uterus was then exteriorized. Several passes were made inside with lap to remove any remaining membranes. The hysterotomy was then closed with 0 Vicryl in continuous running locked suture. A second imbricating layer was performed with 0 Vicryl in a continuous running stitch. On inspection of the hysterotomy, there was noted to be good hemostasis. The posterior cul-de-sac was then cleaned of clots and debris. The uterus was returned to maternal abdomen. Both right and left pericolic gutters were then inspected and noted to be clean of clots and debris. The hysterotomy was then reinspected and noted to be hemostatic. The subcutaneous muscle and fascial layers were then inspected and noted to be hemostatic. The fascia was then closed with 0 Vicryl continuous running stitch. The subcutaneous layers were reapproximated with 2-0 plain in a single running stitch. The skin was reapproximated with 3-0 Vicryl on a Ignacio needle in a subcuticular stitch. Needle, sponge and instrument counts were correct at the completion of the case x2. The patient received both 500 mg of azithromycin and 2 grams of Ancef prior to the incision. I attest to the content of the Intraoperative Record and any orders documented therein. Any exception s are noted below.
[2019-07-22 16:47] LABS: Creatinine Clr Calc Pharmacy 73.4 ml/min; Est GFR (African American) 70.8; Est GFR (Non-African American) 61.1
[2019-07-22] MEDS: DOCUSATE SODIUM 100 MG CAP PO SCH (20:43)
--- NOTE | 2019-07-22 21:24 | Pharmacy Report ---
Pharmacy Abx Initial Consult - Date of Service July 22, 2019 - Pharmacy Dosing Scope Date of Consult: 07/22/19 Consultation requested by: Dr. Wallace Pharmacy is consulted to initiate Gentamicin IV dosing therapy, order appropriate labs and adjust drug dose/frequency. - Subjective The patient is a 28 year old F admitted on 07/21/19 07:36. - Objective Height: 5 ft 4 in Weight: 84.368 kg Vital Signs (Past 12hrs): Vital Signs Temp Pulse Pulse Resp BP BP Pulse Ox 07/22/19 19:55 37.4 C 101 H 18 126/77 97 07/22/19 18:15 18 95 07/22/19 17:15 86 16 122/69 94 07/22/19 16:15 96 H 18 111/67 92 07/22/19 15:15 37.7 C H 92 H 18 117/63 95 07/22/19 14:56 102 H 92 07/22/19 14:51 95 H 92 07/22/19 14:49 89 93 07/22/19 14:46 94 H 98 07/22/19 14:41 95 H 94 07/22/19 14:38 90 94 07/22/19 14:36 86 96 07/22/19 14:31 90 121/66 98 07/22/19 14:30 83 93 07/22/19 14:26 96 H 95 07/22/19 14:25 37.2 C 92 H 18 94 07/22/19 14:21 101 H 115/63 94 07/22/19 14:20 93 H 94 07/22/19 14:16 91 H 92 07/22/19 14:14 94 H 94 07/22/19 14:11 92 H 123/76 94 07/22/19 14:09 91 H 94 07/22/19 14:06 89 97 07/22/19 14:01 90 119/72 98 07/22/19 13:56 97 H 96 07/22/19 13:55 37.1 C 90 18 121/66 98 07/22/19 13:51 93 H 120/68 97 07/22/19 13:46 94 H 98 07/22/19 13:42 102 H 112/56 L 07/22/19 13:41 101 H 96 07/22/19 13:36 91 H 96 07/22/19 13:31 95 H 135/77 97 07/22/19 13:27 114 H 93 07/22/19 13:26 113 H 95 07/22/19 13:25 37.2 C 91 H 18 96 07/22/19 13:21 97 H 134/70 96 07/22/19 13:16 99 H 96 07/22/19 13:15 97 H 18 134/70 96 07/22/19 13:11 100 H 118/69 95 07/22/19 13:06 99 H 97 07/22/19 13:05 99 H 18 114/61 97 07/22/19 13:01 99 H 18 114/61 97 07/22/19 12:56 99 H 97 07/22/19 12:55 99 H 18 114/61 97 07/22/19 12:51 97 H 116/60 95 07/22/19 12:46 105 H 97 07/22/19 12:45 103 H 18 117/66 100 07/22/19 12:41 103 H 117/66 100 07/22/19 12:36 100 H 98 07/22/19 12:35 105 H 16 117/66 07/22/19 12:31 97 H 119/60 99 07/22/19 12:26 111 H 98 07/22/19 12:25 37.5 C 18 07/22/19 12:21 115 H 99 07/22/19 12:20 110 H 136/58 L 07/22/19 11:05 101 H 88 L 07/22/19 11:00 37.1 C 99 H 18 93 07/22/19 10:56 94 H 89 L 07/22/19 10:55 96 H 87 L 07/22/19 10:52 87 130/65 07/22/19 10:50 165 H 84 L 07/22/19 10:45 92 H 93 07/22/19 10:44 103 H 124/66 07/22/19 10:43 107 H 87 L 07/22/19 10:40 100 H 93 07/22/19 10:35 98 H 94 07/22/19 10:30 110 H 94 07/22/19 10:28 116 H 88 L 07/22/19 10:25 110 H 93 07/22/19 10:22 105 H 126/67 07/22/19 10:20 102 H 92 07/22/19 10:15 182 H 82 L 07/22/19 10:14 131 H 86 L 07/22/19 10:10 103 H 68 L 07/22/19 10:09 92 H 89 L 07/22/19 10:07 97 H 116/61 07/22/19 10:04 91 H 89 L 07/22/19 10:03 88 90 07/22/19 10:01 37.1 C 18 07/22/19 09:59 137 H 81 L 07/22/19 09:55 109 H 90 07/22/19 09:54 96 H 124/70 07/22/19 09:50 116 H 93 07/22/19 09:45 112 H 91 07/22/19 09:41 116 H 88 L 07/22/19 09:40 105 H 96 07/22/19 09:37 88 127/68 07/22/19 09:36 95 H 89 L 07/22/19 09:35 91 H 91 07/22/19 09:30 102 H 100 07/22/19 09:25 108 H 88 L Lab Results (24hrs): Laboratory Tests (24 Hours) 07/22/19 16:15 Creatinine 1.22 H Est Cr Clr Drug Dosing 73.4 - Risk Factors for Resistance * None appreciated at this time. - Assessment & Plan Assessment 28 year old F admitted for labor induction. and labor unremarkable, decided to proceed with after several hours without labor progression. Pt received two doses of Gentamicin (~2mg/kg of AdjBW) pre-op. Gentamicin started routinely post-. Patient spiked fever of 37.8 post-op, no leukocytosis. Plan Gentamicin for treatment of possible endometritis/gentiourinary source. Gentamicin * Patient meets criteria for extended-interval aminoglycoside dosing. * Dose: 420 mg (5 mg/kg) IV every 24 hours (5mg/kg of actual BW). * Trough level will be ordered if patient expected to be on medication longer than 72 hours. Goal trough is < 1 mcg/mL. Pharmacy will continue to follow and will adjust dose/frequency as necessary. Thank you.
[2019-07-22] MEDS ORDERED: GENTAMICIN SULFATE 420 MG in DEXTROSE 5% 100 ML IV SCH (22:00)
[2019-07-23] MEDS: AMPICILLIN 2,000 MG in SODIUM CHLOR 0.9% AD-VAN 100 ML IV SCH (04:02)
[2019-07-23] MEDS ORDERED: KETOROLAC 30 MG/ML VIAL IV PRN (05:30)
[2019-07-23] MEDS ORDERED: PROMETHAZINE HCL 25 MG in SODIUM CHLORIDE 0.9% 50 ML IV PRN (05:30)
[2019-07-23] MEDS ORDERED: ONDANSETRON INJ 2 MG/ML 2 ML VIAL IV PRN (05:30)
[2019-07-23] MEDS ORDERED: DiphenhydrAMINE HCL 50 MG/ML VIAL IV PRN (05:30)
[2019-07-23] MEDS ORDERED: CITRIC ACID/SODIUM CITRATE 15 ML UDC PO SCH (06:00)
[2019-07-23] MEDS ORDERED: CEFAZOLIN 2000MG 2,000 MG/15 ML SYR IV SCH (06:00)
--- NOTE | 2019-07-23 06:13 | Obstetrical Progress Note ---
Date of Service <Isabela Hooper DO - Last Filed: 07/23/19 07:18> July 23, 2019 Assessment & Plan <Isabela Hooper DO - Last Filed: 07/23/19 07:18> (1) Encounter for care and examination after delivery: 28 yo F POD #1 following delivery at 41.0 weeks, doing well and without complaints this morning. C section - POD #1 - Feels well, ambulating well, voiding well. - Will continue routine care. - Following d/c will have f/u in 6 weeks. - Blood type A+, Rubella immune. Subjective <Isabela Hooper DO - Last Filed: 07/23/19 07:18> Dottie is a 28 yo female ; POD # 1 following section delivery at 41 weeks; doing well this AM; no abdominal cramping/pain; voiding well, passing gas but no BM; tolerating meals overnight, able to ambulate some within the room. Some persistent spotting this morning but improved from yesterday. 24 Hour I/Os: Intake: 5810mL Output: 4030mL Review of Systems Constitutional: denies fever, chills, sweats, headache Respiratory: denies SOB, difficulty breathing Cardiac: denies CP, chest palpitations, chest pressure Breast: denies breast pain : denies dysuria Physical Exam <Isabela Hooper DO - Last Filed: 07/23/19 07:18> General: patient is alert and oriented, in NAD Cardiac: +S1/S2, no murmurs rubs or gallops Respiratory: lungs CTA b/l, anteriorly and posteriorly, no wheezes rales or rhonchi, no increased work of breathing, symmetric chest rise, no respiratory distress Abdomen: soft, NT, +bowel sounds Uterus: uterine fundus firm and palpable below level of umbilicus. Incision intact, non-tender, non-erythematous, no weeping from incision site Lower Extremities: no LE edema or swelling, no deep calf pain, Nayely's sign negative b/l Results & Data <Isabela Hooper DO - Last Filed: 07/23/19 07:18> Vital Signs (Past 12 Hours) Vital Signs Temp Pulse Resp BP Pulse Ox 07/23/19 03:05 18 94 07/23/19 02:10 18 94 07/23/19 01:05 18 95 07/23/19 00:10 16 95 07/22/19 23:45 37.2 C 92 H 18 112/71 94 07/22/19 23:15 18 95 07/22/19 22:00 18 96 07/22/19 21:00 18 98 07/22/19 19:55 37.4 C 101 H 18 126/77 97 07/22/19 18:15 18 95 Laboratory Results Laboratory Results - last 24 hr 07/22/19 07/23/19 07/23/19 16:15 06:49 06:49 WBC 16.71 H RBC 3.36 L Hgb 10.9 L Hct 32.2 L MCV 95.8 MCH 32.4 MCHC 33.9 RDW Std Deviation 46.9 H RDW Coeff of Elise 13.4 Plt Count 101 L MPV 12.5 H Immature Gran % (Auto) 0.3 Neut % (Auto) 81.8 Lymph % (Auto) 10.1 [place] % (Auto) 7.3 Eos % (Auto) 0.4 Baso % (Auto) 0.1 Immature Gran # (Auto) 0.05 H Neut # (Auto) 13.68 H Lymph # (Auto) 1.68 [place] # (Auto) 1.22 H Eos # (Auto) 0.07 Baso # (Auto) 0.01 Creatinine 1.22 H Pending Est Cr Clr Drug Dosing 73.4 Pending Est GFR ( Amer) 70.8 Pending Est GFR (Non-Af Amer) 61.1 Pending Medications Administered Current Medications Benzocaine (Dermoplast Pain Relieving [place]) 1 appln EXT UD PRN PRN Reason: use on skin as needed Stop: 08/21/19 12:14 Bisacodyl (Dulcolax) 10 mg OH PRN PRN PRN Reason: Constipation Stop: 08/23/19 12:14 Bisacodyl (Dulcolax) 5 mg PO 2000 KETTY Stop: 07/23/19 20:01 Calcium Carbonate (Tums) 1,500 mg PO BID PRN PRN Reason: Indigestion Stop: 08/21/19 09:22 Last Admin: 07/22/19 09:49 Dose: 500 mg Documented by: Cocaine HCl (Supercream 0.870%) 1 gm EXT UD PRN PRN Reason: hemmorrhoidal inflammation Stop: 08/05/19 12:14 Diphenhydramine HCl (Benadryl) 25 mg IV QID PRN PRN Reason: Itching Stop: 08/22/19 05:29 Diphenhydramine HCl (Benadryl Capsule) 25 mg PO QID PRN PRN Reason: Itching Stop: 08/22/19 05:29 Docusate Sodium (Colace) 100 mg PO DAILY@08,21 KETTY Stop: 08/21/19 20:59 Last Admin: 07/22/19 20:43 Dose: 100 mg Documented by: Ferrous Sulfate (Feosol) 325 mg PO DAILY@08 KETTY Stop: 08/22/19 07:59 Hydrocortisone (Anusol Hc) 25 mg OH BID PRN PRN Reason: Hemorrhoids Stop: 08/21/19 12:14 Lactated Ringer's (Lr) 1,000 mls @ 125 mls/hr IV .Q8H PRN; Protocol PRN Reason: L&D Protocol Stop: 07/23/19 07:55 Last Infusion: 07/22/19 12:55 Dose: Infused Documented by: Oxytocin (Pitocin) 30 units in 500 mls @ 333.333 mls/hr IV .Q1H30M PRN; Protocol PRN Reason: Bleeding Control Stop: 08/20/19 07:55 Oxytocin (Pitocin) 30 units in 500 mls @ 0 mls/hr IV .Q0M PRN; Protocol PRN Reason: Labor Induction/Augmentation Stop: 07/23/19 07:58 Last Titration: 07/22/19 05:45 Dose: 0 units/hr, 0 mls/hr Documented by: Ampicillin Sodium 2,000 mg/ (Sodium Chloride) 100 mls @ 200 mls/hr IV Q6H KETTY Stop: 08/01/19 09:59 Last Admin: 07/23/19 04:02 Dose: 200 mls/hr Documented by: Lactated Ringer's (Lr) 1,000 mls @ 125 mls/hr IV .Q8H [facility] Stop: 08/21/19 12:14 Oxytocin 20 units/ Lactated (Ringer's) 1,002 mls @ 125 mls/hr IV .Q8H1M KETTY Stop: 08/21/19 12:14 Last Admin: 07/22/19 22:34 Dose: 125 mls/hr Documented by: Promethazine HCl 25 mg/ Sodium (Chloride) 51 mls @ 204 mls/hr IV Q4H PRN PRN Reason: Nausea And Vomiting Stop: 08/22/19 05:29 Gentamicin Sulfate 420 mg/ (Dextrose) 110.5 mls @ 100 mls/hr IV Q24H KETTY; Protocol Stop: 07/23/19 23:07 Last Admin: 07/22/19 22:34 Dose: 100 mls/hr Documented by: Ibuprofen (Motrin) 600 mg PO Q4H PRN PRN Reason: Pain Stop: 08/21/19 12:14 Ketorolac Tromethamine (Toradol) 30 mg IV Q6H PRN PRN Reason: Pain Stop: 07/28/19 05:29 Last Admin: 07/23/19 05:56 Dose: 30 mg Documented by: Magnesium Hydroxide (Milk Of Magnesia) 30 ml PO HS PRN PRN Reason: Constipation Stop: 08/21/19 12:14 Miscellaneous Information (Consult) 1 ea N/A UD PRN PRN Reason: Consult Stop: 08/21/19 15:28 Ondansetron HCl (Zofran) 4 mg IV Q4H PRN PRN Reason: Nausea Stop: 08/22/19 05:29 Oxycodone/Acetaminophen (Percocet 5mg/325mg) 1 - 2 tab PO Q4H PRN PRN Reason: Pain Stop: 08/06/19 05:29 Prenat Multivit/Harvey/Iron/Folic Ac ( Vitamin) 1 tab PO DAILY@08 [facility] Stop: 08/22/19 07:59 Sennosides (Senokot) 17.2 mg PO HS PRN PRN Reason: Constipation Stop: 08/21/19 12:14 Simethicone (Mylicon) 80 mg PO DAILY@08,13,17,21 [facility] Stop: 08/21/19 12:59 Last Admin: 07/22/19 20:43 Dose: 80 mg Documented by: <Gildardo Wallace MD - Last Filed: 07/23/19 07:42> Co-Signing Physician Notes Patient seen and evaluated and agree with the above findings and plan.
[2019-07-23 07:04] LABS: Basophils # (auto) 0.01 K/uL (0-0.2); Basophils % (auto) 0.1 %; Eosinophils # (auto) 0.07 K/uL (0-0.5); Eosinophils % (auto) 0.4 %; Hematocrit (blood only) 32.2 % (37-47); Hemoglobin 10.9 g/dL (12.0-16.0); Immature Granulocytes # (auto) 0.05 K/uL (0.00-0.02); Immature Granulocytes % (auto) 0.3 %; Lymphocytes # (auto) 1.68 K/uL (1.2-3.4); Lymphocytes % (auto) 10.1 %; Mean Corpuscular Hemoglobin 32.4 pg (25-34); Mean Corpuscular Hgb Conc 33.9 g/dL (32-36); Mean Corpuscular Volume 95.8 fL (80-100); Mean Platelet Volume 12.5 fL (7.4-10.4); Monocytes # (auto) 1.22 K/uL (0.11-0.59); Monocytes % (auto) 7.3 %; Neutrophils # (auto) 13.68 K/uL (1.4-6.5); Neutrophils % (auto) 81.8 %; Platelet Count 101 K/uL (130-400); RDW Coefficient of Variation 13.4 % (11.5-14.5); RDW Standard Deviation 46.9 fL (36.4-46.3); Red Blood Count 3.36 M/uL (4.2-5.4); White Blood Count 16.71 K/uL (4.8-10.8)
[2019-07-23 07:32] LABS: Creatinine Clr Calc Pharmacy 98.4 ml/min; Est GFR (African American) 100.9; Est GFR (Non-African American) 87.1
[2019-07-23] MEDS: DOCUSATE SODIUM 100 MG CAP PO SCH ×2 (08:34→20:30)
[2019-07-23] MEDS: FERROUS SULFATE 325 MG TAB PO SCH (08:34)
[2019-07-23] MEDS: PRENATAL VITAMIN 1 TAB PO SCH (08:34)
[2019-07-23] MEDS: SIMETHICONE 80 MG CHEW PO SCH ×4 (08:35→20:30)
[2019-07-23] MEDS: IBUPROFEN 600 MG TAB PO PRN ×2 (12:29→18:31)
[2019-07-23] MEDS: OXYCODONE/ACETAMINOPHEN 5mg/325mg TAB PO PRN ×2 (12:31→18:31)
[2019-07-23] MEDS ORDERED: bisacodyL 5 MG TABEC PO SCH (20:00)
[2019-07-24] MEDS: IBUPROFEN 600 MG TAB PO PRN ×3 (00:31→09:19)
[2019-07-24] MEDS: OXYCODONE/ACETAMINOPHEN 5mg/325mg TAB PO PRN (00:32)
[2019-07-24 06:35] LABS: Hematocrit (blood only) 29.7 % (37-47); Hemoglobin 10.1 g/dL (12.0-16.0)
--- NOTE | 2019-07-24 06:37 | Obstetrical Progress Note ---
Date of Service July 24, 2019 Assessment & Plan (1) Supervision of normal first : POD#2 doing well. Routine postop care. Subjective Ambulation: ambulating normally Voiding: no voiding problems Diet Tolerance:: regular diet Lochia:: Moderate Review of Systems All systems reviewed & are unremarkable except as noted in HPI & below Physical Exam Incision CDI Constitutional WD/WN, vitals as above no acute distress Respiratory normal respiratory effort Cardiovascular Rate/Rhythm: regular rate and regular rhythm Gastrointestinal (Abdomen) Inspection/Auscultation: abdomen normal to inspection; abdomen not distended Percussion/Palpation: abdomen soft Genitourinary OB Exam Abdomen: + fundal height Fundus: + firm; not tender Results & Data Vital Signs (Past 12 Hours) Vital Signs Temp Pulse Resp BP BP Pulse Ox 07/23/19 23:20 37.2 C 82 16 107/67 97 07/23/19 19:45 36.8 C 91 H 16 123/92 96
[2019-07-24 06:56] LABS: Creatinine Clr Calc Pharmacy 124.4 ml/min; Est GFR (Non-African American) 115.6
--- NOTE | 2019-07-24 07:57 | Anesthesiology Progress Note ---
Date of Service July 24, 2019 Anesthesia Post Procedure Vital Signs Vital Signs: Temp Pulse Resp BP BP Pulse Ox 07/23/19 23:20 37.2 C 82 16 107/67 97 07/23/19 19:45 36.8 C 91 H 16 123/92 96 07/23/19 15:26 36.6 C 88 18 105/69 96 07/23/19 11:32 37.1 C 102 H 18 122/80 96 07/23/19 09:28 37.0 C 84 18 111/73 96 Pain Intensity Bilateral Abdomen: Pain Intensity: 2 Transfer of Care Handoff Completed per policy Notes Mental Status: alert / awake / arousable and participated in evaluation Nausea / Vomiting: adequately controlled Pain: adequately controlled Airway Patency, RR, SpO2: stable & adequate BP & HR: stable & adequate Hydration State: stable & adequate Neuraxial Anesthesia: was administered and sensory block resolved Anesthetic Complications: no major complications apparent and Pt Satisfied with anesthetic care
[2019-07-24] MEDS ORDERED: CITALOPRAM 20 MG TAB PO SCH (09:00)
[2019-07-24] MEDS: DOCUSATE SODIUM 100 MG CAP PO SCH (09:19)
[2019-07-24] MEDS: PRENATAL VITAMIN 1 TAB PO SCH (09:19)
[2019-07-24] MEDS: SIMETHICONE 80 MG CHEW PO SCH (09:19)
[2019-07-24] MEDS: FERROUS SULFATE 325 MG TAB PO SCH (09:19)
[2019-07-24 09:55] VITALS: BP 132/81; PULSE 86; TEMP 97.7; O2SAT 98
[2019-07-24] MEDS ORDERED: bisacodyL 10 MG SUPP PR PRN (12:15)
--- NOTE | 2019-07-27 14:00 | Discharge Summary ---
PROCEDURES WHILE ADMITTED: Induction of labor resulting in a primary low transverse section for arrest of descent. HOSPITAL COURSE: The patient was admitted on 07/21/2019 for induction of labor at 41 weeks. She underwent an induction course and ultimately achieving complete dilation. The patient pushed for approximately 2 hours and 45 minutes and was unable to have any significant descent and patient ultimately underwent a primary low transverse section, which was uncomplicated. The patient remained in house until postoperative day 2 at which time she was meeting all goals and requested discharge. The patient had no complications in her post-delivery period and was discharged home in excellent condition. Both written and verbal post-delivery instructions were discussed in detail and all questions answered to patient's satisfaction prior to discharge. We discussed routine followup in the period as well as indications for being seen for acute reasons.
== END 2019-07-24 11:25 | disposition home or self-care (01) | DRG 786 ==
LOC: 4S1 07:36 → 4S2 07-22 15:11

== ENCOUNTER 2021-08-08 08:49 | Inpatient (IN) ==
[~2021-08-08 08:49] MED LIST: CITRIC ACID/SODIUM CITRATE 15 ML UDC PO SCH
--- NOTE | 2021-08-08 09:13 | Obstetrical Progress Note ---
Date of Service August 08, 2021 Assessment & Plan (1) with 38 completed weeks gestation: (2) Previous delivery affecting , antepartum: (3) Uterine contractions: Plan: first cervix check of . Will monitor for contractions. If makes cervical change, demonstrating labor, will proceed with c/s. If not, then will d/c home with planned c/s on Friday. Will do her covid swab now in anticipation of possible procedure today and will be good for Friday. Subjective Patient is a 30yowf with iup at 38 4/7 weeks with hx of previous c/s and repeat scheduled for Friday who presents to labor and delivery complaining of some contractions overnight and some blood tinged d/c. Notes a bit better this am. Started at 2am. Notes +fm. no lof. Physical Exam Physical Exam: cx--1-2/75/-2 toco--irregular efm--150s wtih mod variaiblity, accels to 165, no decels. Results & Data ([facility]) Vital Signs (Past 12 Hours) Vital Signs Pulse BP 08/08/21 08:54 99 H 108/74 PG Care Time/CCT Total # of Minutes Spent Total Time Spent with Patient: Total time spent is greater than 50% in coordination of care (as documented) at patient's floor/unit and/or counseling patient: Coding Level of Care Code None Diagnoses with 38 completed weeks gestation Z3A.38 Previous delivery affecting , antepartum O34.219 Uterine contractions O47.9
[2021-08-08] MEDS ORDERED: LACTATED RINGER'S 1,000 ML IV SCH ×3 (11:15→13:54)
--- NOTE | 2021-08-08 11:23 | History & Physical Report ---
Date of Service August 08, 2021 Assessment & Plan (1) with 38 completed weeks gestation: (2) Previous delivery affecting , antepartum: (3) SROM (spontaneous rupture of membranes): Plan: Patient now srom and desires repeat c/s. Plan to proceed. Fetus category one. Consent reviewed including the risks of bleeding, transfusion, infection, poor wound healing, damage to surrounding structures, need for further surgery/intervention, injury to baby, heart attack , stroke, blood clot, . Consent signed and questions answered. Admission and Anticipated Discharge Date Admission Date: August 08, 2021 History of Present Illness Chief Complaint: Patient is a 30yowf with iup at 38 4/7 weeks presented to labor and delivery with irregular contractions and some blood tinged d/c. Walked for two hours and just prior to recheck, she had gross srom with clear fluid. Had been sleeping through her irregular contractions. complicated by hx of prior c/s. Planned repeat for this coming Friday. On citalopram for anxiety. Had negative covid test today. Labs: Blood Type A Positive 01/12/21 Antibody Screen NEGATIVE 01/12/21 Hemoglobin 11.1 g/dL (12.0-16.0) L 05/25/21 Hematocrit 33.5 % (37-47) L 05/25/21 Mean Corpuscular Volume 92.1 fL (80-100) 01/12/21 Platelet Count 205 K/uL (130-400) 01/12/21 Rubella IgG Antibody Immune (Immune) 01/12/21 Rapid Plasma Reagin Nonreactive (Nonreactive) 01/12/21 Hepatitis B Surface Antigen Neg (Neg) 01/12/21 HIV (1&2) Ab and P24 Ag, 4th Gener Neg (Neg) 01/12/21 Glucose 1 Hour 50 gm Load 122 mg/dl (70-130) 05/25/21 Maternal Serum Alpha Fetoprotein 20.2 ng/mL 03/02/21 OB Optional Labs: Chlamydia trachomatis RNA NOT DETECTED (NOT DETECTED) 01/12/21 Neisseria gonorrhoeae RNA NOT DETECTED (NOT DETECTED) 01/12/21 Thyroid Stimulating Hormone (TSH) 0.887 uIu/ml (0.300-4.500) 07/06/21 Alpha Fetoprotein Triple Screen SEE NOTE 03/02/21 Labs Reviewed: cf/sma neg last cfdna--low risk msafp--negatve Primary Care Provider: Sera Ch PA-C Allergies Allergy/AdvReac Type Severity Reaction Status Date / Time No Known Drug Allergies Allergy Verified 08/03/21 08:57 Home Medications Medication Instructions Recorded Confirmed Type vit no.95-ferrous 1 tab PO HS 07/20/19 08/08/21 History fumarate 28 mg-folic acid 800 mcg tablet () citalopram 40 mg tablet (Celexa) 40 mg PO HS 01/05/21 08/08/21 History breast pump #1 ea 06/08/21 08/03/21 Rx ferrous sulfate 325 mg (65 mg 325 mg PO HS 07/25/21 08/08/21 History iron) tablet Patient History Medical History Anxiety Currently taking Celexa. Managed by Dr. Renae Heart murmur "Was told once by a physician that she has a heart murmur." No murmur noted with 2019 Migraines hx Surgical History H/O section x1 (Done secondary to "failure to descent") H/O wisdom tooth extraction Family History Father Blood clot in vein Hypertension Polycythemia Dyslipidemia Motor vehicle accident Clotting disorder Drinking problem Grandmother (Paternal) Breast cancer Mother Thyroid disease Anemia Anxiety Family/Other Breast cancer Unknown Multiple gestation Other Colorectal cancer Denies family history of Ovarian cancer Social History Smoking Status: Never smoker Second Hand Exposure: No; Hx Alcohol Use: No Hx Substance Use: No Preferred Language: Malawian Communication Ability: Effective Client Services Specialist Required: No Beliefs That Will Affect Care: None marital status: marital status details: Gregory Phelan [phone] Current Living Situation: Spouse and Family Current Living Situation Comment: lives with spouse, son, dog, cat-spouse changing litter current occupational status: employed current occupation: Dental hygienist Feels Safe at Home: Yes Safety Concerns: Feels Safe At This Time Assistive Devices: None OB History g1--08/07, c/s for arrext of descent for a 9#1.7oz baby. Physical Exam Constitutional: WD/WN, vitals as above Neck: trachea midline, no thyromegaly Gastrointestinal (Abdomen): soft, gravid, nt Psychiatric: A+Ox3, euthymic affect Genitourinary: cx--deferred sse--grossly srom toco--q5-8min efm--130s wtih mod variability , accels to 160s, no decels Results & Data ([facility]) Vital Signs (Past 12 Hours) Vital Signs Temp Pulse Resp BP 08/08/21 08:58 36.7 C 20 08/08/21 08:54 99 H 108/74 Code Status & VTE Plan VTE Prophylaxis Plan VTE Prophylaxis will be ordered: Yes Coding Level of Care Code None Diagnoses with 38 completed weeks gestation Z3A.38 Previous delivery affecting , antepartum O34.219 SROM (spontaneous rupture of membranes)
--- NOTE | 2021-08-08 11:29 | Anesthesiology Consultation ---
Date of Service August 08, 2021 Assessment & Plan ASA ASA3 Proposed Anesthesia Anesthesia Type: Spinal Risk / Benefits Reviewed With: PT / POA / Parent / Guardian, Accepts Plan and Informed Consent Obtained Additional Comments: pending platelet count History Height/Weight Height: 5 ft 3 in Weight: 83.461 kg Allergies Allergy/AdvReac Type Severity Reaction Status Date / Time No Known Drug Allergies Allergy Verified 08/03/21 08:57 Medications Home Medications Medication Instructions Recorded Confirmed Last Taken vit no.95-ferrous 1 tab PO HS 07/20/19 08/08/21 08/07/21 fumarate 28 mg-folic acid 800 mcg tablet () citalopram 40 mg tablet (Celexa) 40 mg PO HS 01/05/21 08/08/21 08/07/21 breast pump #1 ea 06/08/21 08/03/21 Unknown ferrous sulfate 325 mg (65 mg 325 mg PO HS 07/25/21 08/08/21 08/07/21 iron) tablet Past Medical History Medical History Anxiety Currently taking Celexa. Managed by Dr. Renae Heart murmur "Was told once by a physician that she has a heart murmur." No murmur noted with 2019 Migraines hx Exercise / Class Metabolic Activity II 4-5 Yardwork/Stairs/Walk up hill Past Family History Family History Father Blood clot in vein Hypertension Polycythemia Dyslipidemia Motor vehicle accident Clotting disorder Drinking problem Grandmother (Paternal) Breast cancer Mother Thyroid disease Anemia Anxiety Family/Other Breast cancer Unknown Multiple gestation Other Colorectal cancer Denies family history of Ovarian cancer Past Surgical History Surgical History H/O section x1 (Done secondary to "failure to descent") H/O wisdom tooth extraction Past Anesthesia History No Hx of Anesthesia Complications and No Family Hx of Anesthesia Complications History of PONV No Hx of PONV and No Hx of Motion Sickness Social History Smoking Status: Never smoker Hx Alcohol Use: No Hx Substance Use: No substance use type: does not use Review of Systems denies fever/cough/ colds/ chest pain/ SOB/ SILVIA denies SILVIA Physical Exam Vital Signs Last Vital Signs Temp 36.7 C 08/08/21 08:58 Pulse 99 H 08/08/21 08:54 Resp 20 08/08/21 08:58 BP 108/74 08/08/21 08:54 ENMT Mouth: no TMJ abnormality and no dentition abnormality Thyromental Distance: > or= 3.5 Finger Breadths Mallampati Class: II Neck neck extension not limited Respiratory normal respiratory effort; no respiratory distress Auscultation: lungs clear to auscultation bilaterally Cardiovascular Rate/Rhythm: regular rate and regular rhythm Neurologic moves all extremities Psychiatric Orientation: alert and oriented x 3
[2021-08-08] MEDS ORDERED: ePHEDrine sulfate 50 MG/ML AMP IV PRN (11:30)
[2021-08-08] MEDS ORDERED: MoRPHine SULFATE PF 1 MG/ML 10 ML AMP/VIAL INT SPINAL ONE (11:30)
[2021-08-08] MEDS ORDERED: NALOXONE HCL 0.4 MG/1 ML VIAL/CARP IV PRN (11:30)
[2021-08-08] MEDS ORDERED: NALOXONE HCL 0.08 MG in SYRINGE 1.8 ML IV PRN (11:30)
[2021-08-08] MEDS ORDERED: DC INTRASPINAL MORPHINE SCH (11:30)
[2021-08-08] MEDS ORDERED: ONDANSETRON INJ 2 MG/ML 2 ML VIAL IV PRN (11:30)
[2021-08-08] MEDS ORDERED: LACTATED RINGER'S 500 ML IV PRN (11:30)
[2021-08-08] MEDS ORDERED: NO NARCOTICS OR SEDATIVES SCH (11:30)
[2021-08-08] MEDS ORDERED: diphenhydrAMINE 50 MG/ML VIAL IV PRN (11:30)
[2021-08-08] MEDS ORDERED: SODIUM CHLORIDE 0.9% 1000ML 1,000 ML IV SCH (11:30)
[2021-08-08] MEDS ORDERED: NALBUPHINE HCL INJ 10 MG/ML AMP IV PRN (11:30)
[2021-08-08] MEDS ORDERED: NALOXONE HCL 1 MG in SODIUM CHLORIDE 0.9% 1000ML 1,000 ML IV PRN (11:30)
[2021-08-08] MEDS ORDERED: MoRPHine SULFATE 2 MG/ML CARP IV PRN (11:30)
[2021-08-08] MEDS ORDERED: fentaNYL citrate 100 MCG/2 ML VIAL ONE (11:38)
[2021-08-08] MEDS ORDERED: OXYTOCIN 10 UNITS/ML VIAL ONE (11:38)
[2021-08-08] MEDS ORDERED: MoRPHine SULFATE PF 1 MG/ML 10 ML AMP/VIAL ONE (11:38)
[2021-08-08 11:45] LABS: Hematocrit (blood only) 36.5 % (37-47); Hemoglobin 12.4 g/dL (12.0-16.0); Mean Corpuscular Hemoglobin 32.1 pg (25-34); Mean Corpuscular Volume 94.6 fL (80-100); Mean Platelet Volume 11.1 fL (7.4-10.4); Platelet Count 165 K/uL (130-400); RDW Coefficient of Variation 12.9 % (11.5-14.5); RDW Standard Deviation 44.4 fL (36.4-46.3); Red Blood Count 3.86 M/uL (4.2-5.4); White Blood Count 7.94 K/uL (4.8-10.8)
[2021-08-08] MEDS ORDERED: ceFAZolin 2000MG 2,000 MG/15 ML SYR IV SCH (12:00)
[2021-08-08] MEDS ORDERED: ePHEDrine sulfate 50 MG/ML AMP ONE (12:32)
[2021-08-08] MEDS ORDERED: PHENYLEPHRINE 100MCG/ML 5ML SYR ONE (12:32)
--- NOTE | 2021-08-08 13:21 | Operative Report ---
PG Post Operative Report Pre & Post Diagnosis Operation Date: 08/08/21 12:15 Pre-Op Diagnosis: SROM at 38 4/7 Weeks. Previous Section; Pt desires Repeat Section. Post-Op Diagnosis: SROM at 38 4/7 Weeks. Previous Section; Pt desires Repeat Section. I identified the patient and participated in the time-out.: Yes Procedure Operation Date: 08/08/21 12:15 Actual Procedures p Repeat lower transverse Section in LD; Live Female Infant at 1248 in OR # 3(Bilateral) - Amna Abraham MD, FACOG Surgeon Amna Abraham MD, FACOG Bell Attendant Judith Malone RN Estimated Blood Loss 500 Findings Consistent with Post-Op Diagnosis viable female infant, apgars 9/9. ovaries and tubes normal. thick adhesion of the peritoneum to the mid right anterior uterus Fluids 1700 Specimens none Drains chirinos Anesthesia Type Spinal Disposition Accompanied Patient To Recovery: Yes Disposition: L&D Indications [id number] with iup at 38 4/7, srom, hx of previous c/s, desires repeat. Description of Procedure The patient was taken to the operating room where she was identified verbally and by bracelet. She was seated on the operating table where a spinal anesthetic was placed by anesthesia. She was then placed in the supine position with a leftward tilt. A Chirinos catheter was placed sterilely. the patient was prepped and draped in a normal standard fashion. the anesthetic was tested and found to be adequate. A time-out was held, identifying correct patient, procedure, positioning and preoperative antibiotics. There were no concerns. A Pfannenstiel skin incision was made with a knife and taken down to the underly ing layer of fascia with the knife and Bovie electrocautery. Bleeding was attended to with the Bovie. The fascia was incised in the midline with the knife and taken out laterally with scissors. The superior edge of the fascial incision was grasped, elevated and the underlying layer of rectus muscle was taken off bluntly and with scissors. In a similar fashion, the inferior edge of the fascial incision was grasped, elevated and the underlying layer of rectus muscle was taken off bluntly and with scissors. The muscles were bluntly in the midline. The peritoneum was entered bluntly. The incision was then stretched. The bladder blade was placed. There was a thick adhesion of the anterior peritoneum to the right mid uterus. I did dissect into this when trying to enter. The vesicouterine peritoneum was identified, entered with scissors and taken out laterally with scissors. The bladder flap was created digitally A hysterotomy incision was scored with a knife and the incision was stretched superiorly and inferiorly with the monomer recovery operator's fingers. The operators hand was placed into the incision and the head was delivered atraumatically with the assist of a vacuum, with one application and no pop off. No nuchal cord. The nose and mouth were bulb suctioned. the rest of the infant was then delivered without difficulty. The nose and mouth were again bulb suctioned. The cord was clamped and cut and the infant was then handed off to the awaiting lumber stacker for drying and attention. Cord blood and segment were obtained. The placenta was Manually extracted. The uterus was exteriorized and cleared of all clot and debris with moistened laparotomy sponges. The hysterotomy incision was repaired in two layers, the first in a running locked layer, the second in an imbricating layer. Hemostasis was noted to be good. Posterior cul-de-sac was irrigated and cleared of all clot and debris. The hysterotomy incision was again inspected and found to be hemostatic. the serosal surface of the uterus near the adhesion had been disrupted with dissection. The edges were reapproximated with 3-0 Vicryl in a running locked fashion. the uterus was reinteriorized. Hysterotomy incision was again inspected and found to be hemostatic. the area near the adhesion was intact and hemostatic. Decided not to take down this thick adhesion because of concern for bleeding and not in our operative field. Rectus muscles were reapproximated with several interrupted stitches of 0 Vicryl. The fascia was then reapproximated with 0 Vicryl starting at the edges and meeting in the midline. The subcuticular tissues were copiously irrigated and bleeding was attended to with cautery. The skin was then closed with 4-0 Vicryl in a subcuticular fashion. All sponge , lap and needle counts correct x 2. Patient taken to recovery in stable condition. I attest to the content of the Intraoperative Record and any orders documented therein. Any exceptions are noted below.
[2021-08-08] MEDS ORDERED: BENZOCAINE 20% AER SPR 82.5 GM CAN EXT PRN (13:54)
[2021-08-08] MEDS ORDERED: MAGNESIUM HYDROXIDE SUSP 30 ML UDC PO PRN (13:54)
[2021-08-08] MEDS ORDERED: SENNA 8.6 MG TAB PO PRN (13:54)
[2021-08-08] MEDS ORDERED: DIPHTHERIA/TETANUS/PERTUSSIS 0.5 ML SYR/VIAL IM ONE (13:54)
[2021-08-08] MEDS ORDERED: HYDROCORTISONE ACETATE 25 MG SUPP PR PRN (13:54)
[2021-08-08] MEDS ORDERED: SUPERCREAM 0.870% 15 GM JAR EXT PRN (13:54)
--- NOTE | 2021-08-08 14:26 | Anesthesiology Progress Note ---
Date of Service August 08, 2021 Anesthesia Post Procedure Vital Signs Vital Signs: Temp Pulse Resp BP Pulse Ox 08/08/21 14:22 107 H 97 08/08/21 14:17 99 H 111/65 97 08/08/21 14:12 110 H 97 08/08/21 14:07 108 H 114/70 97 08/08/21 14:02 101 H 97 08/08/21 13:58 116 H 111/65 08/08/21 13:57 120 H 97 08/08/21 13:52 100 H 97 08/08/21 13:47 100 H 124/58 L 100 08/08/21 13:42 90 99 08/08/21 13:37 98 H 119/65 100 08/08/21 13:32 86 100 08/08/21 13:27 86 112/56 L 100 08/08/21 08:58 36.7 C 20 08/08/21 08:54 99 H 108/74 Transfer of Care Handoff Completed per policy Notes Mental Status: alert / awake / arousable and participated in evaluation Patient Amnestic to Procedure: Yes Nausea / Vomiting: adequately controlled Pain: adequately controlled Airway Patency, RR, SpO2: stable & adequate BP & HR: stable & adequate Hydration State: stable & adequate Anesthetic Complications: no major complications apparent and Pt Satisfied with anesthetic care
[2021-08-08] MEDS: OXYTOCIN 20 UNITS in LACTATED RINGER'S 1,000 ML IV SCH ×2 (15:00→21:52)
[2021-08-08] MEDS: SIMETHICONE 80 MG CHEW PO SCH ×2 (17:38→21:32)
[2021-08-08] MEDS: KETOROLAC 30 MG/ML VIAL IV PRN (19:58)
[2021-08-08] MEDS: CITALOPRAM 40 MG TAB PO SCH (21:31)
[2021-08-08] MEDS: DOCUSATE SODIUM 100 MG CAP PO SCH (21:32)
[2021-08-09] MEDS: KETOROLAC 30 MG/ML VIAL IV PRN (03:34)
[2021-08-09] MEDS ORDERED: ONDANSETRON INJ 2 MG/ML 2 ML VIAL IV PRN (05:30)
[2021-08-09] MEDS ORDERED: KETOROLAC 30 MG/ML VIAL IV PRN (05:30)
[2021-08-09] MEDS ORDERED: diphenhydrAMINE Capsule 25 MG CAP PO PRN (05:30)
[2021-08-09] MEDS ORDERED: diphenhydrAMINE 50 MG/ML VIAL IV PRN (05:30)
[2021-08-09] MEDS ORDERED: PROMETHAZINE HCL 25 MG in SODIUM CHLORIDE 0.9% 50 ML IV PRN (05:30)
[2021-08-09] MEDS ORDERED: MEPERIDINE HCL 50 MG/ML CARP IV PRN (05:31)
[2021-08-09] MEDS ORDERED: ceFAZolin 2000MG 2,000 MG/15 ML SYR IV SCH (06:00)
[2021-08-09] MEDS ORDERED: CITRIC ACID/SODIUM CITRATE 15 ML UDC PO SCH (06:00)
--- NOTE | 2021-08-09 06:41 | Obstetrical Progress Note ---
Date of Service <Luis Anthony MD - Last Filed: 08/09/21 07:15> August 09, 2021 Assessment & Plan <Luis Anthony MD - Last Filed: 08/09/21 07:15> (1) Encounter for care and examination after delivery: POD #1: stable, routine post C/S management * patient voiding and ambulating without difficulty * pain well controlled on analgesia; will continue to monitor * trial of regular diet this a.m. * * observe on L&D today * assess d/c readiness tomorrow a.m. <Amna Abraham MD, FACOG - Last Filed: 08/09/21 07:29> (1) Encounter for care and examination after delivery: Subjective <Luis Anthony MD - Last Filed: 08/09/21 07:15> Natalie is a 30-year-old female who is POD #1 following for history of prior at 38.4 WGA. She reports feeling well this morning. Minimal pain well managed on analgesics. Chirinos removed overnight. Voiding +. Tolerating clear liquid diet well, is anticipating breakfast, and has been ambulating without difficulty. + Passing gas but no bowel movement. Has some improvement with her lochia this morning. Currently . Review of Systems Denies fever, chills, sweats Denies shortness of breath, difficulty breathing, chest pain, palpitations, chest pressure. Denies breast pain. Denies dysuria. Denies headache or changes in vision. Physical Exam <Luis Anthony MD - Last Filed: 08/09/21 07:15> General: Alert, oriented. No acute distress. Cardiac: Regular rate and rhythm, no murmurs/rubs/gallops. Respiratory: Clear to auscultation bilaterally a/p, no wheezes/rales/rhonchi. No increased work of breathing. Symmetrical chest rise. No respiratory distress. Abdomen: Soft, nontender, nondistended. Bowel sounds present. Uterus: Uterine fundus firm, palpable at the umbilicus. Surgical dressing clean, dry and without any serosanguineous fluid. Lower Extremities: No lower extremity edema or swelling. No deep calf pain. Nayely's negative bilaterally. Results & Data ([facility]) <Luis Anthony MD - Last Filed: 08/09/21 07:15> Vital Signs (Past 12 Hours) Vital Signs Temp Pulse Resp BP Pulse Ox 08/09/21 05:00 16 99 08/09/21 04:00 16 98 08/09/21 03:58 16 98 08/09/21 03:30 36.7 C 74 16 102/67 98 08/09/21 02:00 16 98 08/09/21 01:00 16 98 08/09/21 00:00 14 97 08/08/21 23:30 37.0 C 79 16 111/65 99 08/08/21 23:00 16 98 08/08/21 22:00 16 98 08/08/21 21:00 16 99 08/08/21 20:00 37.2 C 85 16 110/63 99 08/08/21 19:00 16 98 <Amna Abraham MD, FACOG - Last Filed: 08/09/21 07:29> Co-Signing Physician Notes Resident Physician Supervision Note: I interviewed and examined the patient. Discussed with Dr. Kamara and agree with findings and plan as documented in the note. Any exceptions or clarifications are listed here: Doing well day one. Dressing dry this am after changing last night. adat. chirinos out and void. Encourage ambulation. Documented By: Amna Abraham MD, FACOG Resident Activity Tracking <Luis Anthony MD - Last Filed: 08/09/21 07:15> Resident Involvement: Resident Care Provided Care Provided: OB Delivery
[2021-08-09 07:27] LABS: Basophils # (auto) 0.02 K/uL (0-0.2); Basophils % (auto) 0.2 %; Eosinophils # (auto) 0.05 K/uL (0-0.5); Eosinophils % (auto) 0.5 %; Hematocrit (blood only) 35.8 % (37-47); Hemoglobin 12.1 g/dL (12.0-16.0); Immature Granulocytes # (auto) 0.03 K/uL (0.00-0.02); Immature Granulocytes % (auto) 0.3 %; Lymphocytes # (auto) 1.71 K/uL (1.2-3.4); Lymphocytes % (auto) 18.1 %; Mean Corpuscular Hemoglobin 32.3 pg (25-34); Mean Corpuscular Hgb Conc 33.8 g/dL (32-36); Mean Corpuscular Volume 95.5 fL (80-100); Mean Platelet Volume 11.3 fL (7.4-10.4); Monocytes # (auto) 0.72 K/uL (0.11-0.59); Monocytes % (auto) 7.6 %; Neutrophils # (auto) 6.93 K/uL (1.4-6.5); Neutrophils % (auto) 73.3 %; Platelet Count 149 K/uL (130-400); RDW Coefficient of Variation 12.9 % (11.5-14.5); Red Blood Count 3.75 M/uL (4.2-5.4); White Blood Count 9.46 K/uL (4.8-10.8)
[2021-08-09] MEDS: SIMETHICONE 80 MG CHEW PO SCH ×4 (08:56→21:10)
[2021-08-09] MEDS: PRENATAL VITAMIN 1 TAB PO SCH (08:56)
[2021-08-09] MEDS: oxyCODONE/ACETAMINOPHEN 5mg/325mg TAB PO PRN ×4 (08:56→22:54)
[2021-08-09] MEDS: FERROUS SULFATE 325 MG TAB PO SCH (08:57)
[2021-08-09] MEDS: IBUPROFEN 600 MG TAB PO PRN ×4 (08:57→22:54)
[2021-08-09] MEDS: DOCUSATE SODIUM 100 MG CAP PO SCH ×2 (08:57→21:10)
[2021-08-09] MEDS ORDERED: bisacodyL 5 MG TABEC PO SCH (20:00)
[2021-08-09] MEDS: CITALOPRAM 40 MG TAB PO SCH (21:11)
[2021-08-10] MEDS: oxyCODONE/ACETAMINOPHEN 5mg/325mg TAB PO PRN ×2 (04:05→10:10)
[2021-08-10] MEDS: IBUPROFEN 600 MG TAB PO PRN ×2 (04:05→10:10)
--- NOTE | 2021-08-10 06:39 | Obstetrical Progress Note ---
Date of Service <Luis Anthony MD - Last Filed: 08/10/21 06:39> August 10, 2021 Assessment & Plan <Luis Anthony MD - Last Filed: 08/10/21 06:39> (1) Encounter for care and examination after delivery: POD #2: stable, routine post C/S management * patient voiding and ambulating without difficulty * pain well controlled on analgesia; will send home on short prescription of Percocet. * tolerated regular diet well * * anticipate discharge today at patient's convenience. <Marion Yun DO - Last Filed: 08/10/21 07:17> (1) Encounter for care and examination after delivery: Subjective <Luis Anthony MD - Last Filed: 08/10/21 06:39> Post Dionne is a 30-year-old female who is POD 2 following for history of prior at 38.4 WGA. She reports feeling well overall this morning. 1/10 pain well managed on analgesics. Voiding +. Tolerating meals without nausea or vomiting and is ambulating without difficulty. + Passing gas but no bowel movement. Denies lochia this morning. Currently . Review of Systems Denies fever, chills, sweats Denies shortness of breath, difficulty breathing, chest pain, palpitations, chest pressure. Denies breast pain. Denies dysuria. Denies headache or changes in vision. Physical Exam <Luis Anthony MD - Last Filed: 08/10/21 06:39> General: Alert, oriented. No acute distress. Cardiac: Regular rate and rhythm, no murmurs/rubs/gallops. Respiratory: Clear to auscultation bilaterally a/p, no wheezes/rales/rhonchi. No increased work of breathing. Symmetrical chest rise. No respiratory distress. Abdomen: Soft, nontender, nondistended. Bowel sounds present. Uterus: Uterine fundus firm, palpable at the umbilicus. Surgical dressing appears moderately stained with serosanguineous fluid. Surgical scar appears to be healing well, without any signs of pus drainage or erythema. Lower Extremities: No lower extremity edema or swelling. No deep calf pain. Nayely's negative bilaterally. Results & Data ([facility]) <Luis Anthony MD - Last Filed: 08/10/21 06:39> Vital Signs (Past 12 Hours) Vital Signs Temp Pulse Resp BP Pulse Ox 08/09/21 22:50 36.6 C 78 16 106/69 98 08/09/21 19:40 36.7 C 80 16 117/72 98 <Marion Yun DO - Last Filed: 08/10/21 07:17> Co-Signing Physician Notes Resident Physician Supervision Note: I interviewed and examined the patient. Discussed with Dr. Anthony and agree with findings and plan as documented in the note. Any exceptions or clarifications are listed here: POD#2 doing well. Rx Percocet sent. DC instructions reviewed, DC home today. Documented By: Marion Yun DO Resident Activity Tracking <Luis Anthony MD - Last Filed: 08/10/21 06:39> Resident Involvement: Resident Care Provided Care Provided: OB Delivery
[2021-08-10] MEDS: FERROUS SULFATE 325 MG TAB PO SCH (07:46)
[2021-08-10] MEDS: DOCUSATE SODIUM 100 MG CAP PO SCH (07:46)
[2021-08-10] MEDS: PRENATAL VITAMIN 1 TAB PO SCH (07:46)
[2021-08-10] MEDS: SIMETHICONE 80 MG CHEW PO SCH (07:46)
[2021-08-10 08:12] LABS: Hematocrit (blood only) 34.8 % (37-47); Hemoglobin 11.3 g/dL (12.0-16.0)
[2021-08-10 08:45] VITALS: BP 100/65; PULSE 85; TEMP 98.2; O2SAT 96
[2021-08-10] MEDS ORDERED: bisacodyL 10 MG SUPP PR PRN (13:22)
--- NOTE | 2021-08-13 13:37 | Discharge Summary (DS) ---
DATE OF ADMISSION: 08/08/2021 DATE OF DISCHARGE: 08/10/2021 ADMISSION DIAGNOSES: 1. Intrauterine at 38 and 4/7 weeks. 2. Spontaneous rupture of membranes. 3. History of previous section, desires repeat. DISCHARGE DIAGNOSES: 1. Intrauterine at 38 and 4/7 weeks. 2. Spontaneous rupture of membranes. 3. History of previous section, desires repeat. PROCEDURE: Repeat lower transverse section. HISTORY OF PRESENT ILLNESS: The patient is a 30-year-old white female, G2, P1-0-0-1, with an intraut erine at 38 and 4/7 weeks who presents to labor and delivery with irregular contractions an d some bloody-tinged discharge. She walked for 2 hours and just prior to recheck, she had gross spon taneous rupture of clear fluid. complicated by history of prior , desiring repeat , which has been planned for the upcoming Friday. She is on citalopram for anxiety, had a negative C OVID test. For the rest of the patient's history and physical, please see her dictated history and ph ysical. ASSESSMENT: This is a 2, para 1-0-0-1, at 38 and 4/7 weeks with spontaneous rupture of membr anes, history of previous section, desires repeat. HOSPITAL COURSE: The patient was admitted and underwent a repeat lower transverse section w ithout difficulty. Estimated blood loss was 500 mL. Findings at the time of surgery revealed normal uterus and tubes. There was a thick adhesion of the anterior peritoneum to the right mid lower ante rior uterine wall. The patient's course was uncomplicated. She tolerated a regular diet, ambulated without d ifficulty, had her pain well controlled with oral pain medications and was tolerating a regular diet. She was discharged home on postoperative day 2 with routine followup in 6 weeks. Job ID: [id number]
== END 2021-08-10 10:15 | disposition home or self-care (01) | DRG 788 ==
LOC: OPB 08:49 → 4S1 08:50 → 4S2 15:50